=== PATIENT | male | born 1955 | race Caucasian/White ===

== ENCOUNTER 2017-03-15 07:59 | Day surgery (SDC) | payer OTHER ==
[2017-03-13 15:11] VITALS: BMI 28.1
[~2017-03-15 07:59] MED LIST: LACTATED RINGERS 1,000 ML IV SCH
[2017-03-15 08:54] VITALS: TEMP 97.9
[2017-03-15] MEDS ORDERED: PROPOFOL 10 MG/ML 20 ML VIAL IV ONE (09:21)
[2017-03-15] MEDS ORDERED: LIDOCAINE 1% INJ 10MG/ML (20 ML MDV) ONE (09:21)
--- NOTE | 2017-03-15 09:40 | P.PCN ---
Date of Procedure: 03/15/17 Preoperative Diagnosis: Postoperative Diagnosis: Procedure(s) Performed: BRIEF HISTORY: Patient is a 61-year-old pleasant white male, scheduled for an elective colonoscopy as a part of evaluation of Hemoccult-positive stool. PROCEDURE PERFORMED: Colonoscopy with snare polypectomy. PREOPERATIVE DIAGNOSIS: Hemoccult positive stool. IV sedation per Anesthesia. PROCEDURE: After informed consent was obtained, the patient, was brought into the endoscopy unit. IV sedation was administered by Anesthesia under continuous monitoring. Digital rectal examination was normal. Initially the Olympus CF- 160 flexible video colonoscope was then inserted in the rectum, gradually advanced into the cecum without any difficulty. Careful examination was performed as the scope was gradually being withdrawn. Ileocecal valve and the appendiceal orifice were visualized and appeared normal. Prep was excellent. Mucosa of the cecum, ascending colon, transverse colon, descending colon, sigmoid colon, and rectum appeared normal. In the proximal rectum there was a 1.5 cm polyp that was removed by snare polypectomy. There are moderate left- sided diverticulosis seen. Retroflexion was performed in the rectum and no lesions were seen. The patient tolerated the procedure well. IMPRESSION: 1.5 cm proximal rectal polyp status post polypectomy Rest of the colon appeared normal Moderate left-sided diverticulosis RECOMMENDATIONS: Findings of this examination were discussed with the patient as well as his family. He was advised to follow with the biopsy results. The biopsy shows a tubular adenoma he can have a repeat colonoscopy in 5 years. Implants: Indications for Procedure: Operative Findings: Description of Procedure:
[2017-03-15 10:18] VITALS: RESP 18
[2017-03-15 10:31] VITALS: BP 170/89; PULSE 78
== END 2017-03-15 10:53 | disposition home or self-care (01) ==
LOC: ORWHC2ENDO 07:59
PROVIDERS: ATTEND Internal Medicine Gastroenterology
DX: K92.1 Melena (principal); K62.1 Rectal polyp; K57.30 Diverticulosis of large intestine without perforation or abscess without bleeding; I10 Essential (primary) hypertension; K21.9 Gastro-esophageal reflux disease without esophagitis; Z79.899 Other long term (current) drug therapy
CPT/HCPCS: 88305; 45385; J2001; J2704

== ENCOUNTER 2018-06-02 13:53 | Inpatient (IN) | payer BC ==
[2018-06-02] MEDS ORDERED: PANTOPRAZOLE 40 MG/10 ML VIAL IVP STA (14:21)
[2018-06-02] MEDS ORDERED: SODIUM CHLORIDE 0.9% 1,000 ML IV STA (14:21)
[2018-06-02] MEDS ORDERED: SODIUM CHLORIDE 0.9% 500 ML 500 ML IV STA (14:21)
[2018-06-02] MEDS ORDERED: MORPHINE SULFATE 4 MG/ML SYRINGE IV STA (14:21)
[2018-06-02] MEDS ORDERED: ONDANSETRON 4 MG/2 ML VIAL IVP STA (14:21)
--- NOTE | 2018-06-02 14:43 | ED ---
Abdominal Pain HPI - General Chief Complaint: Abdominal Pain Stated Complaint: ABD PAIN Time Seen by Provider: 06/02/18 14:01 Source: patient, RN notes reviewed Mode of arrival: ambulatory Limitations: no limitations - History of Present Illness Initial Comments: This a 62-year-old male presents emergency Department chief complaint of abdominal pain. Patient states it started approximately 10-14 days ago. He states last 3 days and has amplified. Patient states is primarily his epigastric region and when it gets severe it radiates down around. Patient saw PCP today who roddy lab work does not know the results and also had an ultrasound here which showed no acute findings. He called his doctor back stated that she was not feeling better he is actually feeling worse and advised him go to the emergency department. He denies any chest pain or shortness breath. Patient states that he had a colonoscopy approximately one year ago with no major findings. Patient had no prior abdominal surgeries denies any dysuria, hematuria. Patient states that he's had decreased appetite secondary to symptoms states that he has not been eating and drinking much and is also had slight diarrhea. Patient reports no known fever no chills. No flank pain at this time. - Related Data Home Medications Medication Instructions Recorded Confirmed Hydrochlorothiazide [Hydrodiuril] 25 mg PO DAILY 03/13/17 06/02/18 Lansoprazole 15 mg PO BID 03/13/17 06/02/18 Metoprolol Tartrate [Lopressor] 50 mg PO BID 03/13/17 06/02/18 Nabumetone [Relafen] 750 mg PO BID 03/13/17 06/02/18 Allergies Allergy/AdvReac Type Severity Reaction Status Date / Time No Known Allergies Allergy Verified 06/02/18 13:58 Review of Systems ROS Statement: Those systems with pertinent positive or pertinent negative responses have been documented in the HPI. ROS Other: All systems not noted in ROS Statement are negative. Past Medical History Past Medical History: GERD/Reflux, Hypertension History of Any Multi-Drug Resistant Organisms: None Reported Past Surgical History: Orthopedic Surgery Additional Past Surgical History / Comment(s): BILAT KNEE SCOPES Past Anesthesia/Blood Transfusion Reactions: No Reported Reaction Past Psychological History: No Psychological Hx Reported Smoking Status: Former smoker Past Alcohol Use History: None Reported Past Drug Use History: None Reported - Past Family History Mother Family Medical History: No Reported History General Exam Limitations: no limitations General appearance: alert, in no apparent distress Head exam: Present: atraumatic, normocephalic, normal inspection Respiratory exam: Present: normal lung sounds bilaterally. Absent: respiratory distress, wheezes, rales, rhonchi, stridor Cardiovascular Exam: Present: regular rate, normal rhythm, normal heart sounds. Absent: systolic murmur, diastolic murmur, rubs, gallop, clicks GI/Abdominal exam: Present: soft, tenderness (Mild epigastric), normal bowel sounds. Absent: distended, guarding, rebound, rigid Back exam: Absent: CVA tenderness (R), CVA tenderness (L) Neurological exam: Present: alert, oriented X3, CN II-XII intact Skin exam: Present: warm, dry, intact, normal color. Absent: rash Course Vital Signs 06/02/18 06/02/18 06/02/18 13:55 14:47 14:50 Temperature 98.5 F Pulse Rate 75 Respiratory 16 Rate Blood Pressure 148/93 142/87 O2 Sat by Pulse 99 97 98 Oximetry 06/02/18 06/02/18 06/02/18 15:00 15:10 15:20 Temperature Pulse Rate Respiratory Rate Blood Pressure 142/87 155/86 155/86 O2 Sat by Pulse 100 99 Oximetry 06/02/18 06/02/18 15:30 15:40 Temperature Pulse Rate Respiratory Rate Blood Pressure 155/86 O2 Sat by Pulse 100 Oximetry Medical Decision Making - Medical Decision Making 62-year-old male presents emergency from for abdominal pain. Patient had CT labwork CT shows edema and inflammation small bowel mesenteric region. This most likely inflammatory versus infectious less felt to be ischemic. Patient's case discussed with Dr. Delgado. I also did contact ultrasound and take a complete ultrasound of the symptoms he had I&D in which - Lab Data Result diagrams: 06/02/18 14:50 06/02/18 14:50 Lab Results 06/02/18 06/02/18 06/02/18 Range/Units 14:50 14:50 14:50 WBC 11.9 H (3.8-10.6) k/uL RBC 5.09 (4.30-5.90) m/uL Hgb 15.4 (13.0-17.5) gm/dL Hct 43.8 (39.0-53.0) % MCV 86.1 (80.0-100.0) fL MCH 30.2 (25.0-35.0) pg MCHC 35.1 (31.0-37.0) g/dL RDW 12.5 (11.5-15.5) % Plt Count 210 (150-450) k/uL Neutrophils % 83 % Lymphocytes % 9 % Monocytes % 6 % Eosinophils % 0 % Basophils % 0 % Neutrophils # 10.0 H (1.3-7.7) k/uL Lymphocytes # 1.0 (1.0-4.8) k/uL Monocytes # 0.7 (0-1.0) k/uL Eosinophils # 0.1 (0-0.7) k/uL Basophils # 0.0 (0-0.2) k/uL PT (9.0-12.0) sec INR (<1.2) APTT (22.0-30.0) sec Sodium 140 (137-145) mmol/L Potassium 3.6 (3.5-5.1) mmol/L Chloride 103 (98-107) mmol/L Carbon Dioxide 23 (22-30) mmol/L Anion Gap 14 mmol/L BUN 22 H (9-20) mg/dL Creatinine 1.06 (0.66-1.25) mg/dL Est GFR (CKD-EPI)AfAm 88 (>60 ml/min/1.73 sqM) Est GFR (CKD-EPI)NonAf 77 (>60 ml/min/1.73 sqM) Glucose 111 H (74-99) mg/dL Plasma Lactic Acid Zhang 2.1 H* (0.7-2.0) mmol/L Calcium 9.6 (8.4-10.2) mg/dL Total Bilirubin 0.8 (0.2-1.3) mg/dL AST 27 (17-59) U/L ALT 41 (21-72) U/L Alkaline Phosphatase 63 (38-126) U/L Troponin I (0.000-0.034) ng/mL Total Protein 7.9 (6.3-8.2) g/dL Albumin 4.4 (3.5-5.0) g/dL Amylase 45 (30-110) U/L Lipase 136 (23-300) U/L Urine Color Urine Appearance (Clear) Urine pH (5.0-8.0) Ur Specific [place] (1.001-1.035) Urine Protein (Negative) Urine Glucose (UA) (Negative) Urine Ketones (Negative) Urine Blood (Negative) Urine Nitrite (Negative) Urine Bilirubin (Negative) Urine Urobilinogen (<2.0) mg/dL Ur Leukocyte Esterase (Negative) Urine RBC (0-5) /hpf Urine WBC (0-5) /hpf Ur Squamous Epith Cells (0-4) /hpf Urine Bacteria (None) /hpf Urine Mucus (None) /hpf 06/02/18 06/02/18 06/02/18 Range/Units 14:50 14:50 14:50 WBC (3.8-10.6) k/uL RBC (4.30-5.90) m/uL Hgb (13.0-17.5) gm/dL Hct (39.0-53.0) % MCV (80.0-100.0) fL MCH (25.0-35.0) pg MCHC (31.0-37.0) g/dL RDW (11.5-15.5) % Plt Count (150-450) k/uL Neutrophils % % Lymphocytes % % Monocytes % % Eosinophils % % Basophils % % Neutrophils # (1.3-7.7) k/uL Lymphocytes # (1.0-4.8) k/uL Monocytes # (0-1.0) k/uL Eosinophils # (0-0.7) k/uL Basophils # (0-0.2) k/uL PT 11.2 (9.0-12.0) sec INR 1.2 H (<1.2) APTT 23.8 (22.0-30.0) sec Sodium (137-145) mmol/L Potassium (3.5-5.1) mmol/L Chloride (98-107) mmol/L Carbon Dioxide (22-30) mmol/L Anion Gap mmol/L BUN (9-20) mg/dL Creatinine (0.66-1.25) mg/dL Est GFR (CKD-EPI)AfAm (>60 ml/min/1.73 sqM) Est GFR (CKD-EPI)NonAf (>60 ml/min/1.73 sqM) Glucose (74-99) mg/dL Plasma Lactic Acid Zhang (0.7-2.0) mmol/L Calcium (8.4-10.2) mg/dL Total Bilirubin (0.2-1.3) mg/dL AST (17-59) U/L ALT (21-72) U/L Alkaline Phosphatase (38-126) U/L Troponin I <0.012 (0.000-0.034) ng/mL Total Protein (6.3-8.2) g/dL Albumin (3.5-5.0) g/dL Amylase (30-110) U/L Lipase (23-300) U/L Urine Color Yellow Urine Appearance Cloudy (Clear) Urine pH 6.0 (5.0-8.0) Ur Specific [place] 1.028 (1.001-1.035) Urine Protein 1+ H (Negative) Urine Glucose (UA) Negative (Negative) Urine Ketones 3+ H (Negative) Urine Blood Negative (Negative) Urine Nitrite Negative (Negative) Urine Bilirubin Negative (Negative) Urine Urobilinogen 2.0 (<2.0) mg/dL Ur Leukocyte Esterase Negative (Negative) Urine RBC 2 (0-5) /hpf Urine WBC 2 (0-5) /hpf Ur Squamous Epith Cells <1 (0-4) /hpf Urine Bacteria Rare H (None) /hpf Urine Mucus Many H (None) /hpf Disposition Clinical Impression: Abdominal pain, Inflammation of small intestine Narrative: Mesenteric edema Disposition: ADMITTED IP TO THIS HOSP Condition: Fair Referrals: Frederick Charles DO [Primary Care Provider] - 1-2 days
[2018-06-02 15:07] LABS: Appearance,Urine Cloudy (Clear); Bacteria,Urine Rare /hpf; Bilirubin,Urine Negative (Negative); Blood,Urine Negative (Negative); Color,Urine Yellow; Glucose,Urine (UA) Negative (Negative); Ketones,Urine 3+ (Negative); Leukocyte Esterase,Urine Negative (Negative); Mucus,Urine Many /hpf; Nitrite,Urine Negative (Negative); Protein,Urine 1+ (Negative); RBC,Urine 2 /hpf (0-5); Specific Gravity,Urine 1.028 (1.001-1.035); Squamous Epithelial Cell,Urine <1 /hpf (0-4); WBC,Urine 2 /hpf (0-5)
[2018-06-02 15:12] LABS: Basophils % (A) 0 %; Eosinophils # (A) 0.1 k/uL (0-0.7); Eosinophils % (A) 0 %; HCT 43.8 % (39.0-53.0); HGB 15.4 gm/dL (13.0-17.5); Lymphocytes % (A) 9 %; MCH 30.2 pg (25.0-35.0); MCHC 35.1 g/dL (31.0-37.0); MCV 86.1 fL (80.0-100.0); Mean Platelet Volume 6.6; Monocytes # (A) 0.7 k/uL (0-1.0); Monocytes % (A) 6 %; Neutrophils % (A) 83 %; Platelet Count 210 k/uL (150-450); RBC 5.09 m/uL (4.30-5.90); RDW 12.5 % (11.5-15.5); WBC 11.9 k/uL (3.8-10.6)
[2018-06-02 15:13] LABS: INR 1.2 (<1.2); Partial Thromboplastin Time 23.8 sec (22.0-30.0); Prothrombin Time 11.2 sec (9.0-12.0)
[2018-06-02 15:14] LABS: Albumin 4.4 g/dL (3.5-5.0); Calcium 9.6 mg/dL (8.4-10.2); Potassium 3.6 mmol/L (3.5-5.1); Total Bilirubin 0.8 mg/dL (0.2-1.3); Total Protein 7.9 g/dL (6.3-8.2)
--- NOTE | 2018-06-02 15:50 | CT ---
EXAMINATION TYPE: CT abdomen pelvis w con DATE OF EXAM: 06/02/2018 COMPARISON: Ultrasound 06/02/2018 HISTORY: Mid abdominal pain x [address] DLP: 851.9 mGycm Automated exposure control for dose reduction was used. CONTRAST: CT scan of the abdomen pelvis is performed with IV Contrast, patient injected with 100 mL of Isovue 3 00. FINDINGS- LUNG BASES- No significant abnormality is appreciated. LIVER/GB-tiny hypodensity in the liver is too small to characterize. Tiny stone or polyp within the g allbladder. PANCREAS- No gross abnormality is seen. SPLEEN- No gross abnormality is seen. ADRENALS- No gross abnormality is seen. KIDNEYS/BLADDER- no hydronephrosis or nephrolithiasis. There is a subcentimeter hypodensity within th e left kidney too small to characterize. Cortical loss of the left kidney suggest chronic medical estela al disease.. BOWEL-there is a markedly thickened bowel wall in the mid to right abdomen with surrounding mesenteri c edema. Diverticulosis of the colon noted. Appendix normal. There is lack of enhancement of the SMV. LYMPH NODES- No greater than 1cm abdominal or pelvic lymph nodes areappreciated. OSSEOUS STRUCTURES-hypertrophic and degenerative changes. OTHER- lack of enhancement of the IMV and SMV . There is a large hiatal hernia. Trace amount of free fluid in the pelvis. IMPRESSION- 1. There is mesenteric edema with a severely thickened wall small bowel loop in the mid to lower righ t abdomen. Findings are compatible with severe inflammatory process may be on the basis of enteritis. Ischemic, inflammatory or infectious etiology and the differential diagnosis. Poor enhancement of th e superior mesenteric vein is seen. Recommend ultrasound of the SMV and IMV to assess patency and exc lude thrombosis. 2. Diverticulosis with no CT diverticulitis.
[2018-06-02] MEDS ORDERED: PIPERACILLIN-TAZOBACTAM 3.375 GM in SODIUM CHLORIDE 0.9% 100 ML IVPB STA (16:08)
[2018-06-02] MEDS ORDERED: SODIUM CHLORIDE 0.9% 1,000 ML IV ONE (16:08)
[2018-06-02] MEDS ORDERED: HYDROmorphone 1 MG/ML 1 ML SYRINGE IVP PRN (16:16)
[2018-06-02] MEDS ORDERED: NALOXONE 0.4 MG/ML 1 ML VIAL IV PRN (16:16)
[2018-06-02] MEDS ORDERED: ONDANSETRON 4 MG/2 ML VIAL IVP PRN (16:16)
[2018-06-02] MEDS: HYDROmorphone 1 MG/ML 1 ML SYRINGE IVP PRN ×3 (16:28→22:02)
[2018-06-02] MEDS: SODIUM CHLORIDE 0.9% 1,000 ML IV SCH (18:45)
[2018-06-02] MEDS: PIPERACILLIN-TAZOBACTAM 3.375 GM in SODIUM CHLORIDE 0.9% 100 ML IVPB SCH (23:57)
[2018-06-03] MEDS: HYDROmorphone 1 MG/ML 1 ML SYRINGE IVP PRN ×8 (01:12→22:10)
[2018-06-03] MEDS: SODIUM CHLORIDE 0.9% 1,000 ML IV SCH ×3 (02:01→23:30)
[2018-06-03] MEDS: PANTOPRAZOLE 40 MG/10 ML VIAL IV SCH (08:11)
[2018-06-03] MEDS: PIPERACILLIN-TAZOBACTAM 3.375 GM in SODIUM CHLORIDE 0.9% 100 ML IVPB SCH ×3 (10:05→23:27)
[2018-06-03 10:39] VITALS: BMI 29.0
--- NOTE | 2018-06-03 10:39 | P.GSHP ---
History of Present Illness H&P Date: 06/03/18 62-year-old male presented to the emergency room with a chief complaint of midepigastric abdominal pain. Patient stated that he developed the pain about 2 weeks ago. He stated it started midepigastric area radiating across then down. If he ate anything aggravated it caused pain. Patient stated that he notified his primary care provider who did order lab work and an ultrasound which according to the patient showed no acute findings. Called back to his PCP was told to come to the emergency room symptoms were more intense patient stated the pain yesterday before coming into the emergency room was in the mid epigastric area sharp stabbing pain. Patient gives no history of abdominal surgeries. Does have a history of orthopedic procedures done on the bilateral knees. Patient stated that he has not felt like eating several days secondary to having pain if he did eat with abdominal bloating. Also stated over the last several days had been having diarrhea no blood noted in the stool no fever no chills patient states right lower quadrant tender to the touch patient did have a colonoscopy done by Dr. Torre in 2017 reviewing the report showed that a 1.5 cm proximal rectal polyp was removed rest the colon looked normal with moderate left-sided diverticulosis CAT scan of the abdomen pelvis report reviewed diverticulosis with no diverticulitis, findings compatible with severe inflammatory process based on enteritis. 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", djd History of Any Multi-Drug Resistant Organisms: None Reported Past Surgical History: Orthopedic Surgery Additional Past Surgical History / Comment(s): reanna kbee arthroscopies, colonoscopy/plypectomy Past Anesthesia/Blood Transfusion Reactions: Postoperative Nausea & Vomiting ( PONV) Smoking Status: Former smoker - Past Family History Mother Family Medical History: No Reported History, Hearing Disorder / Deafness Additional Family Medical History / Comment(s): MOM IS 88 YEARS JI-HEALTHY ONLY TAKES A VIT E DAILY Father Family Medical History: Rheumatoid Arthritis (RA) Additional Family Medical History / Comment(s): CARDIAC PROBLEMS Medications and Allergies Home Medications Medication Instructions Recorded Confirmed Type Hydrochlorothiazide [Hydrodiuril] 25 mg PO DAILY 03/13/17 06/02/18 History Lansoprazole 15 mg PO BID 03/13/17 06/02/18 History Metoprolol Tartrate [Lopressor] 50 mg PO BID 03/13/17 06/02/18 History Nabumetone [Relafen] 750 mg PO BID 03/13/17 06/02/18 History Allergies Allergy/AdvReac Type Severity Reaction Status Date / Time No Known Allergies Allergy Verified 06/02/18 13:58 Surgical - Exam Vital Signs Temp Pulse Resp BP Pulse Ox 98.5 F 75 16 148/93 99 06/02/18 13:55 06/02/18 13:55 06/02/18 13:55 06/02/18 13:55 06/02/18 13:55 GENERAL APPEARANCE: 62 year old male patient is alert, oriented, in no acute distress. VITAL SIGNS: Reviewed HEENT: Head is normocephalic and atraumatic. Pupils are equal and reactive. The nares are patent. Oropharynx is clear without lesions. NECK: Supple without lymphadenopathy. Traches midline. HEART: S1, S2. Regular rate and rhythm. LUNGS: No crackles or wheezes are heard. ABDOMEN: Soft, mild epigastric tenderness radiating to right upper quadrant nondistended with good bowel sounds. No peritoneal signs. No palpable organomegaly or masses. EXTREMITIES: Normal skin color and turgor. No cyanosis, rash, ulceration, clubbing or edema. Radial pedal pulses are 2/4 bilaterally. NEUROLOGICAL: No focal deficits. Strength and sensation are grossly intact. Results - Labs 06/02/18 14:50 06/02/18 14:50 Abnormal Lab Results - Last 24 Hours (Table) 06/02/18 06/02/18 06/02/18 Range/Units 14:50 14:50 14:50 WBC 11.9 H (3.8-10.6) k/uL Neutrophils # 10.0 H (1.3-7.7) k/uL INR (<1.2) BUN 22 H (9-20) mg/dL Glucose 111 H (74-99) mg/dL Plasma Lactic Acid Zhang 2.1 H* (0.7-2.0) mmol/L Urine Protein (Negative) Urine Ketones (Negative) Urine Bacteria (None) /hpf Urine Mucus (None) /hpf 06/02/18 06/02/18 Range/Units 14:50 14:50 WBC (3.8-10.6) k/uL Neutrophils # (1.3-7.7) k/uL INR 1.2 H (<1.2) BUN (9-20) mg/dL Glucose (74-99) mg/dL Plasma Lactic Acid Zhang (0.7-2.0) mmol/L Urine Protein 1+ H (Negative) Urine Ketones 3+ H (Negative) Urine Bacteria Rare H (None) /hpf Urine Mucus Many H (None) /hpf Diabetes panel 06/02/18 Range/Units 14:50 Sodium 140 (137-145) mmol/L Potassium 3.6 (3.5-5.1) mmol/L Chloride 103 (98-107) mmol/L Carbon Dioxide 23 (22-30) mmol/L BUN 22 H (9-20) mg/dL Creatinine 1.06 (0.66-1.25) mg/dL Glucose 111 H (74-99) mg/dL Calcium 9.6 (8.4-10.2) mg/dL AST 27 (17-59) U/L ALT 41 (21-72) U/L Alkaline Phosphatase 63 (38-126) U/L Total Protein 7.9 (6.3-8.2) g/dL Albumin 4.4 (3.5-5.0) g/dL Calcium panel 06/02/18 Range/Units 14:50 Calcium 9.6 (8.4-10.2) mg/dL Albumin 4.4 (3.5-5.0) g/dL Pituitary panel 06/02/18 Range/Units 14:50 Sodium 140 (137-145) mmol/L Potassium 3.6 (3.5-5.1) mmol/L Chloride 103 (98-107) mmol/L Carbon Dioxide 23 (22-30) mmol/L BUN 22 H (9-20) mg/dL Creatinine 1.06 (0.66-1.25) mg/dL Glucose 111 H (74-99) mg/dL Calcium 9.6 (8.4-10.2) mg/dL Adrenal panel 06/02/18 Range/Units 14:50 Sodium 140 (137-145) mmol/L Potassium 3.6 (3.5-5.1) mmol/L Chloride 103 (98-107) mmol/L Carbon Dioxide 23 (22-30) mmol/L BUN 22 H (9-20) mg/dL Creatinine 1.06 (0.66-1.25) mg/dL Glucose 111 H (74-99) mg/dL Calcium 9.6 (8.4-10.2) mg/dL Total Bilirubin 0.8 (0.2-1.3) mg/dL AST 27 (17-59) U/L ALT 41 (21-72) U/L Alkaline Phosphatase 63 (38-126) U/L Total Protein 7.9 (6.3-8.2) g/dL Albumin 4.4 (3.5-5.0) g/dL Assessment and Plan Assessment: Impression Present on admission epigastric pain radiating to the right upper quadrant likely due to markedly thickened bowel wall with surrounding mesenteric edema inflammation small intestine Computed tomography scan abdomen pelvis show evidence of diverticulosis no diverticulitis Ultrasound of the gallbladder show multiple polyps with common bile duct normal History of colonoscopy 2017 moderate left-sided diverticulosis, 1.5 cm rectal polyp status post polypectomy Present on admission leukocytosis suspect reactive Plan Pain control NPO for now until surgeon evaluates the CAT scan IV Zosyn as ordered DVT and GI prophylaxis Further surgical recommendations pending IV fluid hydration The above impression and plan of care have been discussed and directed by signing physician. Lona John nurse practitioner acting as scribe for signing physician.
--- NOTE | 2018-06-03 19:06 | P.PN ---
Progress Note - Text Progress Note Date: 06/03/18 The patient feels better. His abdominal pain is almost completely resolved. On exam is lesser stable. His evidence soft. Patient will start on clear liquid diet. If his pain persists we will he will undergo repeat CAT scan in the a.m.
[2018-06-04] MEDS: HYDROmorphone 1 MG/ML 1 ML SYRINGE IVP PRN ×2 (03:32→06:53)
[2018-06-04] MEDS: SODIUM CHLORIDE 0.9% 1,000 ML IV SCH ×2 (08:28→17:44)
[2018-06-04] MEDS: PIPERACILLIN-TAZOBACTAM 3.375 GM in SODIUM CHLORIDE 0.9% 100 ML IVPB SCH ×3 (08:28→23:19)
[2018-06-04] MEDS: PANTOPRAZOLE 40 MG/10 ML VIAL IV SCH (08:29)
[2018-06-04 09:10] LABS: Basophils % (A) 0 %; Eosinophils # (A) 0.2 k/uL (0-0.7); Eosinophils % (A) 2 %; HCT 35.2 % (39.0-53.0); HGB 12.5 gm/dL (13.0-17.5); Lymphocytes # (A) 0.8 k/uL (1.0-4.8); Lymphocytes % (A) 8 %; MCH 31.4 pg (25.0-35.0); MCHC 35.5 g/dL (31.0-37.0); MCV 88.5 fL (80.0-100.0); Mean Platelet Volume 6.4; Monocytes # (A) 0.6 k/uL (0-1.0); Monocytes % (A) 6 %; Neutrophils % (A) 82 %; Platelet Count 178 k/uL (150-450); RBC 3.98 m/uL (4.30-5.90); RDW 12.4 % (11.5-15.5); WBC 9.7 k/uL (3.8-10.6)
[2018-06-04 09:36] LABS: ALT 26 U/L (21-72); AST 17 U/L (17-59); Albumin 2.8 g/dL (3.5-5.0); Alkaline Phosphatase 40 U/L (38-126); Anion Gap 7 mmol/L; Blood Urea Nitrogen 14 mg/dL (9-20); Calcium 8.2 mg/dL (8.4-10.2); Carbon Dioxide 26 mmol/L (22-30); Chloride 108 mmol/L (98-107); Glucose 107 mg/dL (74-99); Potassium 4.1 mmol/L (3.5-5.1); Sodium 141 mmol/L (137-145); Total Bilirubin 0.5 mg/dL (0.2-1.3); Total Protein 5.6 g/dL (6.3-8.2)
[2018-06-04] MEDS ORDERED: IOPAMIDOL-300 CONTRAST 30 ML VIAL (ORAL USE) PO PRN (09:50)
--- NOTE | 2018-06-04 10:00 | P.PN ---
Subjective Progress Note Date: 06/04/18 62-year-old male seen at the bedside patient states he started clear liquid diet last evening after drinking the liquid developed bloating sensation with abdominal pain midepigastric area. Stated no nausea sensation no emesis had 1 small stool. Patient reports this morning continues to experience the same sensation of bloating in the abdomen but midepigastric discomfort afebrile abdomen slight tenderness midepigastric area radiating to the right lower quadrant AST and ALT not elevated Labs noted white count 9.7 electrolytes within normal limits Objective - Vital Signs Vital signs: Vital Signs Temp 97.9 F 06/04/18 06:08 Pulse 59 L 06/04/18 06:08 Resp 18 06/04/18 06:08 BP 153/76 06/04/18 06:08 Pulse Ox 98 06/04/18 06:08 Intake & Output 06/03/18 06/04/18 06/04/18 18:59 06:59 18:59 Intake Total 600 900 Output Total 500 Balance 600 400 Weight 86.636 kg Intake: Intake, IV Titration 900 Amount Piperacillin-Tazobactam 3 100 .375 gm In Sodium Chloride 0.9% 100 ml @ 25 mls/hr IVPB Q8HR SHAILESH Rx# :[id number] Sodium Chloride 0.9% 1, 800 000 ml @ 100 mls/hr IV . Q10H [facility]AILESH Rx#:[id number] Oral 600 Output: Urine 500 Other: Voiding Method Toilet # Voids 1 1 - Exam Physical exam 62-year-old male sitting up in a chair appears in no acute distress Lungs adequate air movement bilaterally no shortness of breath Heart S1-S2 audible regular Abdomen mild tenderness right lower quadrant with midepigastric tenderness mildly distended nontender reports no nausea no vomiting no frequent stooling Extremities no edema - Labs CBC & Chem 7: 06/04/18 08:58 06/04/18 08:58 Labs: Abnormal Lab Results - Last 24 Hours (Table) 06/04/18 06/04/18 Range/Units 08:58 08:58 RBC 3.98 L (4.30-5.90) m/uL Hgb 12.5 L (13.0-17.5) gm/dL Hct 35.2 L (39.0-53.0) % Neutrophils # 8.0 H (1.3-7.7) k/uL Lymphocytes # 0.8 L (1.0-4.8) k/uL Chloride 108 H (98-107) mmol/L Glucose 107 H (74-99) mg/dL Calcium 8.2 L (8.4-10.2) mg/dL Total Protein 5.6 L (6.3-8.2) g/dL Albumin 2.8 L (3.5-5.0) g/dL Microbiology - Last 24 Hours (Table) 06/02/18 14:15 Blood Culture - Preliminary Blood No Growth after 24 hours Assessment and Plan Assessment: Impression Present on admission epigastric pain radiating to the right upper quadrant likely due to markedly thickened bowel wall with surrounding mesenteric edema inflammation small intestine Computed tomography scan abdomen pelvis show evidence of diverticulosis no diverticulitis Ultrasound of the gallbladder show multiple polyps with common bile duct normal History of colonoscopy 2017 moderate left-sided diverticulosis, 1.5 cm rectal polyp status post polypectomy Present on admission leukocytosis suspect reactive Plan Pain control We'll repeat a computed tomography scan of the abdomen pelvis with oral contrast follow up on results IV Zosyn as ordered DVT and GI prophylaxis Further surgical recommendations pending IV fluid hydration Pain control Repeat labs in the morning The above impression and plan of care have been discussed and directed by signing physician. Lona John nurse practitioner acting as scribe for signing physician.
[2018-06-04] MEDS: IOPAMIDOL-300 CONTRAST 30 ML VIAL (ORAL USE) PO PRN ×2 (10:04→11:06)
--- NOTE | 2018-06-04 12:29 | CT ---
EXAMINATION TYPE: CT abdomen pelvis w con DATE OF EXAM: 06/04/2018 COMPARISON: CT abdomen pelvis from 2 days earlier HISTORY: Abdominal pain not further specified. CT DLP: 901.3 mGycm, Automated Exposure Control for Dose Reduction was Utilized. CONTRAST: CT scan of the abdomen and pelvis is performed with oral and with IV Contrast, patient injected with 100 mL of Isovue 300. FINDINGS: LUNG BASES: There is new small to tiny right pleural effusion and associated compressive atelectasis. There is new trace left pleural effusion and associated left basilar linear atelectasis. LIVER/GB: There are stable subcentimeter round low dense lesion right hepatic lobe near gallbladder f jeanna axial image 26 2 small to further characterize but presumed benign. Heterogeneity with transient hepatic attenuation difference remains present. PANCREAS: No significant abnormality is seen. SPLEEN: No significant abnormality is seen. ADRENALS: No significant abnormality is seen. KIDNEYS: There is subcentimeter simple appearing cyst posteriorly mid to lower pole level left kidney axial image 36 series 3. BOWEL: There is stable small to moderate-sized hiatal hernia. Oral contrast reaches level of hepatic flexure. There is no suspicious small bowel dilatation. There is persistent severe wall thickening in volving ileal loop in the right lower quadrant which does not include terminal ileum. There is mild w all thickening in the distal one third of transverse colon through splenic flexure into proximal one half of descending colon. This could reflect product of poor distention but a mild colitis cannot be excluded at this level. Severe diverticulosis of sigmoid colon is redemonstrated. Persistent mild/mod erate wall thickening mid to distal sigmoid colon remains present. Differential includes product of p oor distention versus focal colitis. No significant adjacent fat stranding noted. PROSTATE/SEMINAL VESICLES: No gross abnormality seen. LYMPH NODES: No greater than 1cm abdominal or pelvic lymph nodes are appreciated. OSSEOUS STRUCTURES: No significant abnormality is seen. OTHER: Small to moderate amount of free fluid in pelvis axial image 72 is increased from prior. There is nonfilling of the superior mesenteric vein on both early and delayed phase images consistent with complete thrombosis this is best visualized on coronal images 41 through 45 up to the confluence wit h splenic vein. Other adjacent draining veins show contrast opacification. IMPRESSION: Persistent severe focal enteritis involving ileal loop in the right lower quadrant and up per pelvis. Cannot exclude additional mild areas of colitis as detailed above. Complete acute thrombo sis of the SMV is once again felt present as there is persistent nonenhancement noted. No significant improvement or change from 2 days earlier.
--- NOTE | 2018-06-04 17:30 | P.PN ---
Progress Note - Text Progress Note Date: 06/04/18 The patient is resting comfortably in his bed. He denies any significant abdominal pain. He has some minimal abdominal distention. He denies any nausea or vomiting. He's had multiple bowel movements. He's had no vomiting. Patient's CAT scan was reviewed. There appears to be significantly thickened jejunal loop. There is also evidence of SMV thrombosis. The patient has no acute abdominal tenderness. He is tolerating clear liquids. Patient will have his diet advanced to full liquid diet. He will be clinically observed.
[2018-06-04] MEDS: HYDROcodone/APAP 5-325MG 1 EACH TAB PO PRN (18:38)
[2018-06-05] MEDS: HYDROcodone/APAP 5-325MG 1 EACH TAB PO PRN (00:14)
[2018-06-05] MEDS: SODIUM CHLORIDE 0.9% 1,000 ML IV SCH ×2 (04:12→12:11)
[2018-06-05] MEDS: PANTOPRAZOLE 40 MG/10 ML VIAL IV SCH (07:36)
[2018-06-05] MEDS: PIPERACILLIN-TAZOBACTAM 3.375 GM in SODIUM CHLORIDE 0.9% 100 ML IVPB SCH ×3 (07:36→23:34)
[2018-06-05 08:36] LABS: Basophils # (A) 0.1 k/uL (0-0.2); Basophils % (A) 1 %; Eosinophils # (A) 0.3 k/uL (0-0.7); Eosinophils % (A) 3 %; HCT 42.1 % (39.0-53.0); Lymphocytes # (A) 0.9 k/uL (1.0-4.8); Lymphocytes % (A) 9 %; MCH 29.6 pg (25.0-35.0); MCHC 33.2 g/dL (31.0-37.0); MCV 89.2 fL (80.0-100.0); Mean Platelet Volume 6.6; Monocytes # (A) 0.6 k/uL (0-1.0); Monocytes % (A) 6 %; Neutrophils # (A) 7.7 k/uL (1.3-7.7); Neutrophils % (A) 79 %; Platelet Count 234 k/uL (150-450); RBC 4.72 m/uL (4.30-5.90); RDW 12.4 % (11.5-15.5); WBC 9.6 k/uL (3.8-10.6)
[2018-06-05] MEDS ORDERED: METOPROLOL TARTRATE 50 MG TAB PO SCH (09:00)
[2018-06-05] MEDS ORDERED: HYDROCHLOROTHIAZIDE 25 MG TAB PO SCH (09:00)
[2018-06-05 09:15] LABS: ALT 29 U/L (21-72); AST 25 U/L (17-59); Albumin 3.5 g/dL (3.5-5.0); Alkaline Phosphatase 52 U/L (38-126); Anion Gap 8 mmol/L; Blood Urea Nitrogen 13 mg/dL (9-20); Calcium 8.9 mg/dL (8.4-10.2); Carbon Dioxide 26 mmol/L (22-30); Chloride 108 mmol/L (98-107); Glucose 106 mg/dL (74-99); Potassium 3.4 mmol/L (3.5-5.1); Sodium 142 mmol/L (137-145); Total Bilirubin 0.6 mg/dL (0.2-1.3); Total Protein 6.6 g/dL (6.3-8.2)
[2018-06-05] MEDS ORDERED: HEPARIN SODIUM,PORCINE 5,000 UNIT/ML 1 ML VIAL IV PRN (09:38)
[2018-06-05] MEDS: HEPARIN SOD,PORK IN 0.45% NACL 25,000 UNIT in 0.45% NACL 1 500ML.BAG IV SCH (10:09)
--- NOTE | 2018-06-05 10:43 | P.PN ---
Subjective Progress Note Date: 06/05/18 63-year-old male seen at the bedside with Dr. segal and . dr segal did update the daughter per phone conversation as well as the patient and the patient's on the plan of care. Patient reports yesterday evening after drinking some chicken broth developed abdominal pain. Patient points to the midepigastric area states he felt bloated. CAT scan done yesterday was reviewed by Dr. segal . Noted complete acute thrombus of the SMV persistent severe focal enteritis involving the ileal loop in the right lower quadrant and upper pelvis additionally patient's heart rate was noted to be in the 90s last night EKG obtained at that time showed atrial fibrillation rate in the 90s. Patient was asymptomatic. Patient also reports having a history of a clotting disorder questionable factor V on no anticoagulation. Currently sitting up on the edge of the bed and states less abdominal discomfort Objective - Vital Signs Vital signs: Vital Signs Temp 98.7 F 06/05/18 07:30 Pulse 84 06/05/18 08:45 Resp 16 06/05/18 08:45 BP 119/89 06/05/18 07:24 Pulse Ox 94 L 06/04/18 22:15 Intake & Output 06/04/18 06/05/18 06/05/18 18:59 06:59 18:59 Intake Total 600 600 Balance 600 600 Intake: Oral 600 600 Other: Voiding Method Toilet # Voids 2 3 # Bowel Movements 1 - Exam Physical exam 62-year-old male sitting up in a chair appears in no acute distress talkative at bedside Lungs adequate air movement bilaterally no shortness of breath Heart S1-S2 audible regular heart rate in the 80s Abdomen soft slightly distended reports mild tenderness in the epigastric area non-bloated states urinating no difficulty no stool passing gas reports no nausea vomiting Extremities no edema - Labs CBC & Chem 7: 06/05/18 08:17 06/05/18 08:17 Labs: Abnormal Lab Results - Last 24 Hours (Table) 06/05/18 06/05/18 Range/Units 08:17 08:17 Lymphocytes # 0.9 L (1.0-4.8) k/uL Potassium 3.4 L (3.5-5.1) mmol/L Chloride 108 H (98-107) mmol/L Glucose 106 H (74-99) mg/dL Microbiology - Last 24 Hours (Table) 06/02/18 14:15 Blood Culture - Preliminary Blood No Growth after 48 hours Assessment and Plan Assessment: Impression Present on admission epigastric pain radiating to the right upper quadrant likely due to markedly thickened bowel wall with surrounding mesenteric edema inflammation small intestine Computed tomography scan abdomen pelvis show evidence of diverticulosis no diverticulitis Ultrasound of the gallbladder show multiple polyps with common bile duct normal History of colonoscopy 2016 moderate left-sided diverticulosis, 1.5 cm rectal polyp status post polypectomy Present on admission leukocytosis suspect reactive CAT scan of the abdomen and pelvis obtained on the may report reviewed acute thrombus of the SMV with persistent severe vocal and neuritis involving ileal loop in the right lower quadrant History of a clotting disorder 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 2 and 5 on no anticoagulation at home Plan Pain control IV Zosyn as ordered DVT and GI prophylaxis Further surgical recommendations pending IV fluid hydration Pain control Consult hematology for the acute thrombus of the SMV and history of questionable clotting disorder consult cardiology for the episode of atrial fibrillation consult Dr. Parmar medical management Start IV heparin drip as ordered The above impression and plan of care have been discussed and directed by signing physician. Lona John nurse practitioner acting as scribe for signing physician.
[2018-06-05] MEDS: POTASSIUM CHLORIDE ER 20 MEQ TAB.ER PO SCH ×2 (10:55→13:02)
[2018-06-05 11:14] LABS: INR 1.2 (<1.2); Prothrombin Time 11.5 sec (9.0-12.0)
--- NOTE | 2018-06-05 12:08 | ECHOF ---
Referral Reason:arrhythmia MEASUREMENTS -------- HEIGHT: 172.7 cm WEIGHT: 86.6 kg BP: 119/89 RVIDd: 3.3 cm (< 3.3) IVSd: 1.3 cm (0.6 - 1.1) LVIDd: 4.2 cm (3.9 - 5.3) LVPWd: 1.2 cm (0.6 - 1.1) IVSs: 1.8 cm LVIDs: 2.7 cm LVPWs: 1.5 cm LA Diam: 3.6 cm (2.7 - 3.8) LAESV Index (A-L): 37.79 ml/m Ao Diam: 3.4 cm (2.0 - 3.7) AV Cusp: 2.1 cm (1.5 - 2.6) MV EXCURSION: 20.824 mm (> 18.000) MV EF SLOPE: 144 mm/s (70 - 150) EPSS: 0.4 cm MV E Garrison: 1.12 m/s MV DecT: 205 ms MV A Garrison: 0.73 m/s MV E/A Ratio: 1.53 RAP: 5.00 mmHg RVSP: 17.37 mmHg FINDINGS -------- Atrial fibrillation. This was a technically good study. The left ventricular size is normal. There is mild concentric left ventricular hypertrophy. Overa ll left ventricular systolic function is normal with, an EF between 60 - 65 %. The right ventricle is mildly enlarged. LA is moderately dilated 34-39 ml/m2 The right atrium is normal in size. The aortic valve is trileaflet and appears structurally normal. The mitral valve is normal. Mild tricuspid regurgitation present. Right ventricular systolic pressure is normal at < 35 mmHg. There is no pulmonic regurgitation present. The aortic root size is normal. Normal inferior vena cava with normal inspiratory collapse consistent with estimated right atrial pre ssure of 5 mmHg. The inferior vena cava is mildly dilated. There is no pericardial effusion. CONCLUSIONS -------- 1. Atrial fibrillation. 2. This was a technically good study. 3. The left ventricular size is normal. 4. There is mild concentric left ventricular hypertrophy. 5. Overall left ventricular systolic function is normal with, an EF between 60 - 65 %. 6. The right ventricle is mildly enlarged. 7. LA is moderately dilated 34-39 ml/m2 8. The right atrium is normal in size. 9. The aortic valve is trileaflet and appears structurally normal. 10. The mitral valve is normal. 11. Mild tricuspid regurgitation present. 12. Right ventricular systolic pressure is normal at < 35 mmHg. 13. There is no pulmonic regurgitation present. 14. The aortic root size is normal. 15. Normal inferior vena cava with normal inspiratory collapse consistent with estimated right atrial pressure of 5 mmHg. 16. The inferior vena cava is mildly dilated. 17. There is no pericardial effusion. FOOT PRESS OPERATOR: Sia Pinzon RDCS
[2018-06-05 13:00] LABS: Magnesium 2.3 mg/dL (1.6-2.3)
--- NOTE | 2018-06-05 13:48 | P.CRDCN ---
History of Present Illness History of present illness: This is a pleasant 63-year-old male past medical history significant for hypertension, sleep apnea and GERD. He denies history of coronary artery disease or cardiac arrhythmia. He has never followed with a cripple chaser for any reason. We have been asked to see him in consultation for atrial fibrillation. He initially presented to the hospital 06/02 with abdominal pain and was diagnosed with a thrombus of the SMV. No EKG obtained on admission. Last night thee nurse felt his heart sounded irregular during her assessment and an EKG was obtained that showed he was in atrial fibrillation with controlled ventricular response. He denies ever having felt palpitations, chest pain, shortness of breath, dizziness, nausea or vomiting. Laboratory data reviewed, hgb 14, plt 234, sodium 142, potassium 3.4, creatinine 0.86, magnesium 2.3, TSH 1.86. Echocardiogram obtained reveals preserved left ventricular systolic function with ejection fraction 60-65% with mild TR. Current cardiac medications include lopressor 50 mg in AM and 100 mg at HS and hydrochlorothiazide 25 mg daily. At the time of my exam: CONSTITUTIONAL: Denies fever. Denies chills. EYES: Denies blurred vision. Denies vision changes. Denies eye pain. EARS, NOSE, MOUTH & THROAT: Denies headache. Denies sore throat. Denies ear pain. CARDIOVASCULAR: Denies chest pain. Denies shortness of breath. Denies orthopnea. Denies PND. Denies palpitations. RESPIRATORY: Denies cough. GASTROINTESTINAL: Denies abdominal pain. Denies diarrhea. Denies constipation. Denies nausea. Denies vomiting. MUSCULOSKELETAL: Denies myalgias. INTEGUMENTARY: Denies pruitis. Denies rash. NEUROLOGIC: Denies numbness. Denies tingling. Denies weakness. PSYCHIATRIC: Denies anxiety. Denies depression. ENDOCRINE: Denies fatigue. Denies weight change. Denies polydipsia. Denies polyurina. GENITOURINARY: Denies burning, hematuria or urgency with micturation. HEMATOLOGIC: Denies history of anemia. Denies bleeding. Blood pressure 119/89 heart rate 89 afebrile maintaining oxygen saturation or murmur GENERAL: This is a 63-year-old male in no apparent distress at the time of my examination. HEENT: Head is atraumatic, normocephalic. Pupils are equal, round. Sclerae anicteric. Conjunctivae are clear. Mucous membranes of the mouth are moist. Neck is supple. There is no jugular venous distention. No carotid bruit is heard. LUNGS: Clear to auscultation no wheezes, rales or rhonchi. No chest wall tenderness is noted on palpation or with deep breathing. HEART: Irregular rate and rhythm without murmurs, rubs or gallops. S1 and S2 heard. ABDOMEN: Soft, nontender. Bowel sounds are heard. No organomegaly noted. EXTREMITIES: No evidence of peripheral edema and no calf tenderness noted. VASCULAR: Radial and dorsalis pedis pulses palpated, no evidence of clubbing. NEUROLOGIC: Patient is awake, alert and oriented x3. ASSESSMENT New-onset paroxysmal atrial fibrillation with controlled ventricular response Acute thrombus of the SMV Hypokalemia, currently being replaced. 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 Apply bus driver/monitor. Check TSH and magnesium level. He is currently anticoagulated with heparin infusion per surgical services secondary to SMV thrombus. We have recommended he be initiated on long-term anticoagulation. This has been discussed in great detail with the patient and his and they are agreeable. The risks have been explained in great detail. We will check the cost of Eliquis 5 mg twice a day with case management. Further recommendations to follow based upon clinical course. Thank you kindly for this consultation. Nurse Practitioner note has been reviewed, I agree with a documented findings and plan of care. Patient was seen and examined. Past Medical History Past Medical History: Blood Disorder, GERD/Reflux, Hypertension, Sleep Apnea/ CPAP/BIPAP Additional Past Medical History / Comment(s): "i have factor 2 and factor 5", djd History of Any Multi-Drug Resistant Organisms: None Reported Past Surgical History: Orthopedic Surgery Additional Past Surgical History / Comment(s): reanna kbee arthroscopies, colonoscopy/plypectomy Past Anesthesia/Blood Transfusion Reactions: Postoperative Nausea & Vomiting ( PONV) Smoking Status: Former smoker - Past Family History Mother Family Medical History: No Reported History, Hearing Disorder / Deafness Additional Family Medical History / Comment(s): MOM IS 88 YEARS JI-HEALTHY ONLY TAKES A VIT E DAILY Father Family Medical History: Rheumatoid Arthritis (RA) Additional Family Medical History / Comment(s): CARDIAC PROBLEMS Medications and Allergies Home Medications Medication Instructions Recorded Confirmed Type Hydrochlorothiazide [Hydrodiuril] 25 mg PO DAILY 03/13/17 06/02/18 History Lansoprazole 15 mg PO BID 03/13/17 06/02/18 History Metoprolol Tartrate [Lopressor] 50 mg PO BID 03/13/17 06/02/18 History Nabumetone [Relafen] 750 mg PO BID 03/13/17 06/02/18 History Allergies Allergy/AdvReac Type Severity Reaction Status Date / Time No Known Allergies Allergy Verified 06/02/18 13:58 Physical Exam Vitals: Vital Signs Temp Pulse Pulse Resp BP Pulse Ox 06/05/18 08:45 84 16 06/05/18 07:30 98.7 F 06/05/18 07:24 89 16 119/89 06/04/18 22:15 98.9 F 87 20 134/70 94 L 06/04/18 15:35 97.1 F L 65 16 134/71 96 Intake and Output 06/04/18 06/05/18 06/05/18 22:59 06:59 14:59 Intake Total 600 Output Total 600 Balance 600 -600 Intake: Oral 600 Output: Urine 600 Other: Voiding Method Toilet # Voids 3 3 # Bowel Movements 1 Results 06/05/18 08:17 06/05/18 08:17 Cardiac Enzymes 06/05/18 Range/Units 08:17 AST 25 (17-59) U/L Coagulation 06/05/18 06/05/18 Range/Units 09:19 09:38 PT 11.5 (9.0-12.0) sec APTT 24.7 (22.0-30.0) sec CBC 06/05/18 Range/Units 08:17 WBC 9.6 (3.8-10.6) k/uL RBC 4.72 (4.30-5.90) m/uL Hgb 14.0 (13.0-17.5) gm/dL Hct 42.1 (39.0-53.0) % Plt Count 234 (150-450) k/uL Comprehensive Metabolic Panel 06/05/18 Range/Units 08:17 Sodium 142 (137-145) mmol/L Potassium 3.4 L (3.5-5.1) mmol/L Chloride 108 H (98-107) mmol/L Carbon Dioxide 26 (22-30) mmol/L BUN 13 (9-20) mg/dL Creatinine 0.86 (0.66-1.25) mg/dL Glucose 106 H (74-99) mg/dL Calcium 8.9 (8.4-10.2) mg/dL AST 25 (17-59) U/L ALT 29 (21-72) U/L Alkaline Phosphatase 52 (38-126) U/L Total Protein 6.6 (6.3-8.2) g/dL Albumin 3.5 (3.5-5.0) g/dL Current Medications Generic Name Dose Route Start Last Admin Trade Name Freq PRN Reason Stop Dose Admin Hydrocodone Bitart/Acetaminophen 1 each 06/04/18 09:52 06/05/18 00:14 Bolton 5-325 PO 1 each Q4HR PRN Administration Pain Heparin Sodium (Porcine) 0 unit 06/05/18 09:38 Heparin IV PER PROTOCOL PRN Low PTT Protocol Sodium Chloride 1,000 mls @ 100 mls/hr 06/02/18 16:15 06/05/18 12:11 Saline 0.9% IV Not Given .Q10H SHAILESH Piperacillin Sod/Tazobactam 100 mls @ 25 mls/hr 06/03/18 00:00 06/05/18 07:36 Sod 3.375 gm/ Sodium Chloride IVPB 25 mls/hr Q8HR SHAILESH Administration Heparin Sodium/Sodium Chloride 500 mls @ 20.09 mls/hr 06/05/18 09:45 10:09 25,000 unit/ Sodium Chloride IV 11.6 units/kg/hr .Q24H SHAILESH 20.09 mls/hr Administration Protocol 11.6 UNITS/KG/HR Metoprolol Tartrate 100 mg 06/05/18 21:00 Lopressor PO HS [facility] Metoprolol Tartrate 50 mg 06/06/18 09:00 Lopressor PO DAILY SHAILESH Naloxone HCl 0.2 mg 06/02/18 16:16 Narcan IV Q2M PRN Opioid Reversal Ondansetron HCl 4 mg 06/02/18 16:16 Zofran IVP Q8HR PRN Nausea And Vomiting Pantoprazole Sodium 40 mg 06/03/18 09:00 06/05/18 07:36 Protonix IV 40 mg DAILY SHAILESH Administration Intake and Output 06/04/18 06/05/18 06/05/18 22:59 06:59 14:59 Intake Total 600 Output Total 600 Balance 600 -600 Intake: Oral 600 Output: Urine 600 Other: Voiding Method Toilet # Voids 3 3 # Bowel Movements 1 06/05/18 08:17 06/05/18 08:17
--- NOTE | 2018-06-05 19:14 | P.CONS ---
History of Present Illness - History of Present Illness this is a pleasant 63 yo M with pmh of hypertension, osteoarthritis, GERD, and sleep apnea, obesty who presents with abdominal pain of 2 weeks duration , the pain is in the epigastrium, stabing in character, was getting worse with food with no associated nausea or vomiting. pt has little loose bowel movement. he presented to his pcp during which he got worse with some dizziness and he was sent to the hospital . CT of Abd/Pelvis: there is markedly thickened bowel wall in the right abd with mesenteric edema and thormbosis of SMV is suspected . EKG : showed atrial fibrillation. pt is already was started on heparin drip. cardiolgy team evaluated the pt and recomended pt to start on eliquis. pt currently abd pain is minial with some abd distension . pt ate a little bit because he feels full. 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 Review of Systems REVIEW OF SYSTEMS: CONSTITUTIONAL: No fever, no malaise, no fatigue. HEENT: No recent visual problems or hearing problems. Denied any sore throat. CARDIOVASCULAR: No orthopnea, PND, no palpitations, no syncope. PULMONARY: No shortness of breath, no cough, no hemoptysis. GASTROINTESTINAL: No diarrhea, no nausea, no vomiting, no abdominal pain. Normoactive bowel sounds. NEUROLOGICAL: No headaches, no weakness, no numbness. HEMATOLOGICAL: Denies any bleeding or petechiae. GENITOURINARY: Denies any burning micturition, frequency, or urgency. MUSCULOSKELETAL/RHEUMATOLOGICAL: Denies any joint pain, swelling, or any muscle pain. ENDOCRINE: Denies any polyuria or polydipsia. Past Medical History Past Medical History: Blood Disorder, GERD/Reflux, Hypertension, Sleep Apnea/ CPAP/BIPAP Additional Past Medical History / Comment(s): "i have factor 2 and factor 5", djd History of Any Multi-Drug Resistant Organisms: None Reported Past Surgical History: Orthopedic Surgery Additional Past Surgical History / Comment(s): reanna kbee arthroscopies, colonoscopy/plypectomy Past Anesthesia/Blood Transfusion Reactions: Postoperative Nausea & Vomiting ( PONV) Past Psychological History: No Psychological Hx Reported Smoking Status: Former smoker Additional Past Alcohol Use History / Comment(s): "quit in 1990" - Past Family History Mother Family Medical History: No Reported History, Hearing Disorder / Deafness Additional Family Medical History / Comment(s): MOM IS 88 YEARS JI-HEALTHY ONLY TAKES A VIT E DAILY Father Family Medical History: Rheumatoid Arthritis (RA) Additional Family Medical History / Comment(s): CARDIAC PROBLEMS Brother(s) Family Medical History: Blood Disorder (clotting disorders, PAD) Medications and Allergies Home Medications Medication Instructions Recorded Confirmed Type Hydrochlorothiazide [Hydrodiuril] 25 mg PO DAILY 03/13/17 06/02/18 History Lansoprazole 15 mg PO BID 03/13/17 06/02/18 History Metoprolol Tartrate [Lopressor] 50 mg PO BID 03/13/17 06/02/18 History Nabumetone [Relafen] 750 mg PO BID 03/13/17 06/02/18 History Allergies Allergy/AdvReac Type Severity Reaction Status Date / Time No Known Allergies Allergy Verified 06/02/18 13:58 Physical Exam Vitals: Vital Signs Temp Pulse Pulse Resp BP Pulse Ox 06/05/18 15:22 83 06/05/18 13:32 98.3 F 83 18 123/74 96 06/05/18 08:45 84 16 06/05/18 07:30 98.7 F 06/05/18 07:24 89 16 119/89 06/04/18 22:15 98.9 F 87 20 134/70 94 L Intake and Output 06/05/18 06/05/18 06/05/18 06:59 14:59 22:59 Intake Total 141.635 Output Total 600 Balance -600 141.635 Intake: Intake, IV Titration 141.635 Amount Heparin Sod,Pork in 0.45% 141.635 NaCl 25,000 unit In 0.45 % NaCl 1 500ml.bag @ 11.6 UNITS/KG/HR 20.09 mls/hr IV .Q24H SHAILESH Rx#: [id number] Output: Urine 600 Other: # Voids 3 Physical exam GENERAL: The patient is alert and oriented x3, not in any acute distress. Well developed, well nourished. HEENT: Pupils are round and equally reacting to light. EOMI. No scleral icterus. No conjunctival pallor. Normocephalic, atraumatic. No pharyngeal erythema. No thyromegaly. CARDIOVASCULAR: S1 and S2 present. No murmurs, rubs, or gallops. PULMONARY: Chest is clear to auscultation, no wheezing or crackles. ABDOMEN: Soft, nontender, nondistended, normoactive bowel sounds. No palpable organomegaly. MUSCULOSKELETAL: No joint swelling or deformity. EXTREMITIES: No cyanosis, clubbing, or pedal edema. NEUROLOGICAL: Gross neurological examination did not reveal any focal deficits. SKIN: No rashes. Results CBC & Chem 7: 06/05/18 08:17 06/05/18 08:17 Labs: Abnormal Lab Results - Last 24 Hours (Table) 06/05/18 06/05/18 06/05/18 Range/Units 08:17 08:17 09:38 Lymphocytes # 0.9 L (1.0-4.8) k/uL INR 1.2 H (<1.2) Potassium 3.4 L (3.5-5.1) mmol/L Chloride 108 H (98-107) mmol/L Glucose 106 H (74-99) mg/dL Microbiology - Last 24 Hours (Table) 06/02/18 14:15 Blood Culture - Preliminary Blood No Growth after 72 hours Assessment and Plan Assessment: acute SMV thrombosis , started on anticoagulation enteritis/colitis secondary to above new onset a. fib factor II and V deficincy Plan: this is a pleasant 63 yo M presenting with a fib and SMV thrombosis. cardiology team is been consulted. pt is already started on anti-coagulation. his heart rate is better controlled now. advance diet as tolerated . continue with the same treatment , continue with symptomatic treatment , resume home medication , monitor lytes and vitals including glucose , c/w iv fluids, cardiology consult is appreciated. infectious disease consult is appreciated . c /w same antibioitc . GI and DVT prophylaxis , further recommendation based upon pt clinical course and progress DVT prophylaxis on anticoagulation GI prophylaxis Protonix Prognosis is guarded
--- NOTE | 2018-06-05 19:46 | P.CONS ---
History of Present Illness - Reason for Consult Consult date: 06/05/18 mesenteric venous thrombosis Requesting physician: Lona John - Chief Complaint abd pain - History of Present Illness Mr. Bright is a very pleasant male pt who met with Dr. Moise back in May 2017 where he was referred to have hypercoaguability work up because of family history. He did not have a personal history of venous or arterial thrombosis at that time. He has 6 brothers and one sister, one brother had thrombosis at age 54, was found to be homozygous for prothrombin gene mutation. Another brother was screened and found to be homozygous for prothrombin gene mutation, negative for factor V Leiden and another brother was screened and found to be heterzygous for factor V Leiden mutation. Another brother had MT at age 40, however, he and the other sibling did not have hypercoaguability work up. There have been no other family members with known thrombosis, his father had mini strokes in his 80's. 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 He has bilateral claudication of the lower extremities, history of bilateral knee surgeries, no personal history of thrombosis. He had colonoscopy 8103/[address] Wall with snare polypectomy of a rectal polyp, tubular adenoma. He has had his PSA monitored. Pt states increase stomach upset for about 2 weeks, attributed to a change in his heartburn medication, the pain persisted in the upper abdomen and it became so severe he came for medical attention. The pain was associated with diaphoresis, worsened with eating, denied vomiting, CT AP showed comlete SMV thrombosis and sever sigmoid diverticulosis. Heparin drip has been initiated with significant improvement in his abd pain. 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", djd History of Any Multi-Drug Resistant Organisms: None Reported Past Surgical History: Orthopedic Surgery Additional Past Surgical History / Comment(s): reanna kbee arthroscopies, colonoscopy/plypectomy Past Anesthesia/Blood Transfusion Reactions: Postoperative Nausea & Vomiting ( PONV) Past Psychological History: No Psychological Hx Reported Smoking Status: Former smoker Additional Past Alcohol Use History / Comment(s): "quit in 1990" - Past Family History Mother Family Medical History: No Reported History, Hearing Disorder / Deafness Additional Family Medical History / Comment(s): MOM IS 88 YEARS JI-HEALTHY ONLY TAKES A VIT E DAILY Father Family Medical History: Rheumatoid Arthritis (RA) Additional Family Medical History / Comment(s): CARDIAC PROBLEMS Brother(s) Family Medical History: Blood Disorder (clotting disorders, PAD) Medications and Allergies Home Medications Medication Instructions Recorded Confirmed Type Hydrochlorothiazide [Hydrodiuril] 25 mg PO DAILY 03/13/17 06/02/18 History Lansoprazole 15 mg PO BID 03/13/17 06/02/18 History Metoprolol Tartrate [Lopressor] 50 mg PO BID 03/13/17 06/02/18 History Nabumetone [Relafen] 750 mg PO BID 03/13/17 06/02/18 History Allergies Allergy/AdvReac Type Severity Reaction Status Date / Time No Known Allergies Allergy Verified 06/02/18 13:58 Physical Exam Vitals: Vital Signs Temp Pulse Pulse Resp BP Pulse Ox 06/05/18 15:22 83 06/05/18 13:32 98.3 F 83 18 123/74 96 06/05/18 08:45 84 16 06/05/18 07:30 98.7 F 06/05/18 07:24 89 16 119/89 06/04/18 22:15 98.9 F 87 20 134/70 94 L Intake and Output 06/05/18 06/05/18 06/05/18 06:59 14:59 22:59 Intake Total 141.635 Output Total 600 Balance -600 141.635 Intake: Intake, IV Titration 141.635 Amount Heparin Sod,Pork in 0.45% 141.635 NaCl 25,000 unit In 0.45 % NaCl 1 500ml.bag @ 11.6 UNITS/KG/HR 20.09 mls/hr IV .Q24H [facility] Rx#: [id number] Output: Urine 600 Other: # Voids 3 - Constitutional General appearance: average body habitus, cooperative, no acute distress - EENT Eyes: anicteric sclerae, EOMI, normal appearance ENT: hearing grossly normal, normal oropharynx - Neck Neck: no lymphadenopathy - Respiratory Respiratory: bilateral: CTA - Cardiovascular Rhythm: irregularly irregular Heart sounds: normal: S1, S2 Abnormal Heart Sounds: no systolic murmur, no diastolic murmur, no rub, no S3 Gallop, no S4 Gallop, no click, no other leg Peripheral Edema: bilateral: None - Gastrointestinal General gastrointestinal: normal bowel sounds, soft, tenderness (very mild epigastric) - Genitourinary no inguinal adenopathy - Integumentary Integumentary: normal - Neurologic Neurologic: CNII-XII intact - Musculoskeletal Musculoskeletal: strength equal bilaterally - Psychiatric Psychiatric: A&O x's 3, appropriate affect, intact judgment & insight Results CBC & Chem 7: 06/05/18 08:17 06/05/18 08:17 Labs: Abnormal Lab Results - Last 24 Hours (Table) 06/05/18 06/05/18 06/05/18 Range/Units 08:17 08:17 09:38 Lymphocytes # 0.9 L (1.0-4.8) k/uL INR 1.2 H (<1.2) Potassium 3.4 L (3.5-5.1) mmol/L Chloride 108 H (98-107) mmol/L Glucose 106 H (74-99) mg/dL Microbiology - Last 24 Hours (Table) 06/02/18 14:15 Blood Culture - Preliminary Blood No Growth after [address] scan - abdomen: report reviewed CT scan - pelvis: report reviewed Assessment and Plan (1) Superior mesenteric vein thrombosis Narrative/Plan: Case reviewed in detail with Dr. David. Recommendation is for BLE doppler to rule out DVT. He would also like doppler of SMV and IMV. CTA chest in 24 hours since pt recently had contrast. Dr. David is going to discuss case with Dr. Delgado. Pt will stay on heparin drip for now in case of any possible procedures. It looks as though serial CT scans are being done to monitor the bowel. Pt will be on lifelong anticoagulation as this is an unprovoked clot with factor II and V mutations Will continue to follow with oral anticoagulation recommendations Current Visit: Yes Status: Acute Priority: High Code(s): I81 - PORTAL VEIN THROMBOSIS SNOMED Code(s): 494458766
[2018-06-05] MEDS: METOPROLOL TARTRATE 50 MG TAB PO SCH (21:07)
[2018-06-06] MEDS: SODIUM CHLORIDE 0.9% 1,000 ML IV SCH ×3 (02:25→23:28)
[2018-06-06 06:02] LABS: Basophils % (A) 0 %; Eosinophils # (A) 0.4 k/uL (0-0.7); Eosinophils % (A) 6 %; HCT 37.4 % (39.0-53.0); HGB 12.4 gm/dL (13.0-17.5); Lymphocytes % (A) 14 %; MCH 29.6 pg (25.0-35.0); MCV 89.6 fL (80.0-100.0); Mean Platelet Volume 6.3; Monocytes # (A) 0.4 k/uL (0-1.0); Monocytes % (A) 6 %; Neutrophils # (A) 4.7 k/uL (1.3-7.7); Neutrophils % (A) 70 %; Platelet Count 240 k/uL (150-450); RBC 4.18 m/uL (4.30-5.90); RDW 12.4 % (11.5-15.5); WBC 6.7 k/uL (3.8-10.6)
[2018-06-06 06:10] LABS: ALT 33 U/L (21-72); AST 21 U/L (17-59); Albumin 3.1 g/dL (3.5-5.0); Alkaline Phosphatase 44 U/L (38-126); Anion Gap 6 mmol/L; Blood Urea Nitrogen 16 mg/dL (9-20); Calcium 8.4 mg/dL (8.4-10.2); Carbon Dioxide 25 mmol/L (22-30); Chloride 108 mmol/L (98-107); Glucose 93 mg/dL (74-99); Potassium 4.1 mmol/L (3.5-5.1); Sodium 139 mmol/L (137-145); Total Bilirubin 0.6 mg/dL (0.2-1.3); Total Protein 5.9 g/dL (6.3-8.2)
[2018-06-06] MEDS ORDERED: HEPARIN SODIUM,PORCINE 5,000 UNIT/ML 1 ML VIAL IV STA (06:34)
[2018-06-06] MEDS: HEPARIN SOD,PORK IN 0.45% NACL 25,000 UNIT in 0.45% NACL 1 500ML.BAG IV SCH ×2 (06:50→06:53)
[2018-06-06] MEDS: PANTOPRAZOLE 40 MG TABLET PO SCH (07:27)
[2018-06-06] MEDS: METOPROLOL TARTRATE 50 MG TAB PO SCH ×2 (07:28→21:20)
[2018-06-06] MEDS: PIPERACILLIN-TAZOBACTAM 3.375 GM in SODIUM CHLORIDE 0.9% 100 ML IVPB SCH ×2 (07:55→17:07)
--- NOTE | 2018-06-06 08:53 | P.PN ---
Subjective this is a pleasant 63 yo M with pmh of hypertension, osteoarthritis, GERD, and sleep apnea, obesty who presents with abdominal pain of 2 weeks duration , the pain is in the epigastrium, stabing in character, was getting worse with food with no associated nausea or vomiting. pt has little loose bowel movement. he presented to his pcp during which he got worse with some dizziness and he was sent to the hospital . CT of Abd/Pelvis: there is markedly thickened bowel wall in the right abd with mesenteric edema and thormbosis of SMV is suspected . EKG : showed atrial fibrillation. pt is already was started on heparin drip. cardiolgy team evaluated the pt and recomended pt to start on eliquis. pt currently abd pain is minial with some abd distension . pt ate a little bit because he feels full. 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 06/06/2018 Patient still have mild abdominal pain which is like sharp associated with bowel movement. Patient since yesterday have 5 bowel movements which were mushy. However by the time I saw the patient and his abdominal pain has resolved down to 0/10. No associated nausea vomiting. No chest pain or dyspnea. No with pain or swelling. Cardiology and oncology team are following the patient as well and they recommended to start him on oral anticoagulation. Patient need approval for his Eliquis. He still on IV fluids at 50 mL per hour. Gynecology team recommended vascular workup and form of CT angiogram of the chest and double ultrasound of the lower extremity and abdominal ultrasound. Patient will need lifelong anticoagulation and his been informed with this for which he agrees. Risk of nephrotoxicity with IV contrast are explained to the patient in detail she verbalized understanding and acceptance to do the test. Benefits more than risks Objective - Vital Signs Vital signs: Vital Signs Temp 98.5 F 06/06/18 07:00 Pulse 61 06/06/18 07:00 Resp 18 06/06/18 07:00 BP 147/84 06/06/18 07:00 Pulse Ox 97 06/06/18 07:00 Intake & Output 06/05/18 06/06/18 06/06/18 18:59 06:59 18:59 Intake Total 074.815 1573.415 Output Total 600 Balance -274.271 8987.415 Intake: Intake, IV Titration 353.824 3710.415 Amount Heparin Sod,Pork in 0.45% 141.635 361.415 NaCl 25,000 unit In 0.45 % NaCl 1 500ml.bag @ 11.6 UNITS/KG/HR 20.09 mls/hr IV .Q24H [facility] Rx#: [id number] Sodium Chloride 0.9% 1, 900 000 ml @ 100 mls/hr IV . Q10H [facility] Rx#:[id number] Oral 300 Output: Urine 600 Other: Voiding Method Toilet # Voids 2 - Exam Physical exam GENERAL: The patient is alert and oriented x3, not in any acute distress. Well developed, well nourished. HEENT: Pupils are round and equally reacting to light. EOMI. No scleral icterus. No conjunctival pallor. Normocephalic, atraumatic. No pharyngeal erythema. No thyromegaly. CARDIOVASCULAR: S1 and S2 present. No murmurs, rubs, or gallops. PULMONARY: Chest is clear to auscultation, no wheezing or crackles. ABDOMEN: Soft, nontender, nondistended, normoactive bowel sounds. No palpable organomegaly. MUSCULOSKELETAL: No joint swelling or deformity. EXTREMITIES: No cyanosis, clubbing, or pedal edema. NEUROLOGICAL: Gross neurological examination did not reveal any focal deficits. SKIN: No rashes. - Labs CBC & Chem 7: 06/06/18 05:18 06/06/18 05:18 Labs: Abnormal Lab Results - Last 24 Hours (Table) 06/05/18 06/05/18 06/05/18 Range/Units 08:17 09:38 22:47 RBC (4.30-5.90) m/uL Hgb (13.0-17.5) gm/dL Hct (39.0-53.0) % INR 1.2 H (<1.2) APTT 34.0 H (22.0-30.0) sec Potassium 3.4 L (3.5-5.1) mmol/L Chloride 108 H (98-107) mmol/L Glucose 106 H (74-99) mg/dL Total Protein (6.3-8.2) g/dL Albumin (3.5-5.0) g/dL 11/09/18 11/09/18 11/09/18 Range/Units 05:18 05:18 05:18 RBC 4.18 L (4.30-5.90) m/uL Hgb 12.4 L (13.0-17.5) gm/dL Hct 37.4 L (39.0-53.0) % INR (<1.2) APTT 39.3 H (22.0-30.0) sec Potassium (3.5-5.1) mmol/L Chloride 108 H (98-107) mmol/L Glucose (74-99) mg/dL Total Protein 5.9 L (6.3-8.2) g/dL Albumin 3.1 L (3.5-5.0) g/dL Microbiology - Last 24 Hours (Table) 06/02/18 14:15 Blood Culture - Preliminary Blood No Growth after 72 hours Assessment and Plan Assessment: acute SMV thrombosis , started on anticoagulation enteritis/colitis secondary to above new onset a. fib factor II and V deficincy Mild leukocytosis on admission, resolved Plan: this is a pleasant 63 yo M presenting with a fib and SMV thrombosis. cardiology team is been consulted. pt is already started on anti-coagulation. his heart rate is better controlled now. advance diet as tolerated . continue with the same treatment , continue with symptomatic treatment , resume home medication , monitor lytes and vitals including glucose , c/w iv fluids, cardiology consult is appreciated. infectious disease consult is appreciated . c /w same antibioitc . GI and DVT prophylaxis , further recommendation based upon pt clinical course and progress DVT prophylaxis on anticoagulation GI prophylaxis Protonix Prognosis is guarded
--- NOTE | 2018-06-06 09:42 | US ---
EXAMINATION TYPE: US venous doppler duplex LE DATE OF EXAM: 06/06/2018 8:44 AM COMPARISON: NONE CLINICAL HISTORY: SMV thrombosis, hypercoaguable state. on heparin for abd vessel thrombus SIDE PERFORMED: bilateral TECHNIQUE: The lower extremity deep venous system is examined utilizing real time linear array sonog shira with graded compression, doppler sonography and color-flow sonography. VESSELS IMAGED: External Iliac Vein (EIV) Common Femoral Vein Deep Femoral Vein Greater Saphenous Vein * Femoral Vein Popliteal Vein Small Saphenous Vein * Proximal Calf Veins (* superficial vessels) Right Leg: Appears negative for DVT Left Leg: Appears negative for DVT IMPRESSION: 1. No diagnostic evidence of DVT
--- NOTE | 2018-06-06 09:46 | US ---
EXAMINATION TYPE: US abdomen complete DATE OF EXAM: 06/06/2018 COMPARISON: NONE CLINICAL HISTORY: SMV thrombosis. known thrombus within abd, reassess abd, no symptoms EXAM MEASUREMENTS: Liver Length: 14.9 cm Gallbladder Wall: 0.2 cm CBD: 0.6 cm Spleen: 10.7 cm Right Kidney: 12.2 x 6.1 x 5.4 cm Left Kidney: 12.4 x 5.0 x 4.9 cm overlying bowel gas severely limits exam Pancreas: unable to see due to bowel gas Liver: unable to visualize left lobe, small right lobe cyst seen Gallbladder: multiple polyps seen = 0.7cm Evidence for sonographic Dozier's sign: no CBD: wnl Spleen: wnl Right Kidney: wnl Left Kidney: 1.3cm superior pole cyst seen Upper IVC: very limited views due to gas Abd Aorta: proximal portion obscured by bowel gas IMPRESSION: 1. Small right lobe hepatic cyst. 2. Gallbladder polyps or nonshadowing stones. 3. Left renal lesion too small to characterize by ultrasound. 4. SMV and IMV are not demonstrated to assess for patency.
--- NOTE | 2018-06-06 11:11 | P.PN ---
<Araceli Johnne M - Last Filed: 06/06/18 11:04> Subjective Progress Note Date: 06/06/18 63-year-old male seen. Patient has been up ambulating in hallway. Patient states had another episode last evening after eating a small amount became bloated felt he had a lot of gas had a bowel movement with relief. Currently this morning the patient states he is not having any bowel movements. Patient is being followed by cardiology oncology service. Currently patient is on IV heparin per recommendations by cardiology for atrial fibrillation with episodes of RVR. Patient is scheduled today for a CT angiogram with Dopplers to the lower extremities per recommendations of oncology. Hemoglobin 12.4 Patient is a history of factor II and factor V deficiency with no history of thrombosis has 3 brothers with the clotting factor deficiency area patient was on no anticoagulation in the outpatient setting Patients being worked up first. Mesenteric vein thrombosis Objective - Vital Signs Vital signs: Vital Signs Temp 98.5 F 06/06/18 07:00 Pulse 61 06/06/18 07:00 Resp 18 06/06/18 07:00 BP 147/84 06/06/18 07:00 Pulse Ox 97 06/06/18 07:00 Intake & Output 06/05/18 06/06/18 06/06/18 18:59 06:59 18:59 Intake Total 245.952 1469.415 Output Total 600 Balance -783.180 2131.415 Weight 86.636 kg Intake: Intake, IV Titration 924.600 4307.415 Amount Heparin Sod,Pork in 0.45% 141.635 361.415 NaCl 25,000 unit In 0.45 % NaCl 1 500ml.bag @ 11.6 UNITS/KG/HR 20.09 mls/hr IV .Q24H [facility] Rx#: [id number] Sodium Chloride 0.9% 1, 900 000 ml @ 100 mls/hr IV . Q10H [facility] Rx#:[id number] Oral 300 Output: Urine 600 Other: Voiding Method Toilet Toilet # Voids 2 - Exam Physical exam 62-year-old male up ambulating in the welsh appears in no acute distress talkative at bedside Lungs adequate air movement bilaterally no shortness of breath Heart S1-S2 audible regular heart rate in the 80s Abdomen soft currently is stating having no abdominal pain this morning no nausea no vomiting states urinating no difficulty no stool passing gas reports no nausea vomiting Extremities no edema - Labs CBC & Chem 7: 06/06/18 05:18 06/06/18 05:18 Labs: Abnormal Lab Results - Last 24 Hours (Table) 06/05/18 06/05/18 06/06/18 Range/Units 09:38 22:47 05:18 RBC 4.18 L (4.30-5.90) m/uL Hgb 12.4 L (13.0-17.5) gm/dL Hct 37.4 L (39.0-53.0) % INR 1.2 H (<1.2) APTT 34.0 H (22.0-30.0) sec Chloride (98-107) mmol/L Total Protein (6.3-8.2) g/dL Albumin (3.5-5.0) g/dL 06/06/18 06/06/18 Range/Units 05:18 05:18 RBC (4.30-5.90) m/uL Hgb (13.0-17.5) gm/dL Hct (39.0-53.0) % INR (<1.2) APTT 39.3 H (22.0-30.0) sec Chloride 108 H (98-107) mmol/L Total Protein 5.9 L (6.3-8.2) g/dL Albumin 3.1 L (3.5-5.0) g/dL Microbiology - Last 24 Hours (Table) 06/02/18 14:15 Blood Culture - Preliminary Blood No Growth after 72 hours Assessment and Plan Assessment: Impression Present on admission epigastric pain radiating to the right upper quadrant likely due to markedly thickened bowel wall with surrounding mesenteric edema inflammation small intestine Computed tomography scan abdomen pelvis show evidence of diverticulosis no diverticulitis Ultrasound of the gallbladder show multiple polyps with common bile duct normal History of colonoscopy 2017 moderate left-sided diverticulosis, 1.5 cm rectal polyp status post polypectomy Present on admission leukocytosis suspect reactive CAT scan of the abdomen and pelvis obtained on the may report reviewed acute thrombus of the SMV with persistent severe vocal and neuritis involving ileal loop in the right lower quadrant History of a clotting disorder factor. 2 and 5 on no anticoagulation at home CAT scan abdomen and pelvis report's appearing mesentery vein thrombosis Plan Pain control IV Zosyn as ordered DVT and GI prophylaxis Further surgical recommendations pending IV fluid hydration Pain control Continue the workup per oncology defer to Continue recommendations by cardiology service Progress note being dictated for Dr. Santiago rounding on behalf of dr segal The above impression and plan of care have been discussed and directed by signing physician. Lona John nurse practitioner acting as scribe for signing physician. <Rohan Santiago - Last Filed: 06/06/18 18:01> Objective - Vital Signs Vital signs: Vital Signs Temp 98.0 F 06/06/18 14:52 Pulse 62 06/06/18 14:52 Resp 18 06/06/18 14:52 BP 142/84 06/06/18 14:52 Pulse Ox 96 06/06/18 14:52 Intake & Output 06/05/18 06/06/18 06/06/18 18:59 06:59 18:59 Intake Total 095.413 0127.415 Output Total 600 Balance -632.356 9731.415 Weight 86.636 kg Intake: Intake, IV Titration 851.429 3876.415 Amount Heparin Sod,Pork in 0.45% 141.635 361.415 NaCl 25,000 unit In 0.45 % NaCl 1 500ml.bag @ 11.6 UNITS/KG/HR 20.09 mls/hr IV .Q24H [facility] Rx#: [id number] Sodium Chloride 0.9% 1, 900 000 ml @ 100 mls/hr IV . Q10H [facility] Rx#:[id number] Oral 300 Output: Urine 600 Other: Voiding Method Toilet Toilet # Voids 2 2 - Labs CBC & Chem 7: 06/06/18 05:18 06/06/18 05:18 Labs: Abnormal Lab Results - Last 24 Hours (Table) 06/05/18 06/06/18 06/06/18 Range/Units 22:47 05:18 05:18 RBC 4.18 L (4.30-5.90) m/uL Hgb 12.4 L (13.0-17.5) gm/dL Hct 37.4 L (39.0-53.0) % APTT 34.0 H (22.0-30.0) sec Chloride 108 H (98-107) mmol/L Total Protein 5.9 L (6.3-8.2) g/dL Albumin 3.1 L (3.5-5.0) g/dL 06/06/18 06/06/18 Range/Units : 13:52 RBC (4.30-5.90) m/uL Hgb (13.0-17.5) gm/dL Hct (39.0-53.0) % APTT 39.3 H 57.6 H (22.0-30.0) sec Chloride (98-107) mmol/L Total Protein (6.3-8.2) g/dL Albumin (3.5-5.0) g/dL Microbiology - Last 24 Hours (Table) 06/02/18 14:15 Blood Culture - Preliminary Blood No Growth after 72 hours Assessment and Plan Assessment: As above. Patient states he is doing much better today. Yesterday he was having abdominal discomfort with eating however today the patient's pain has been absent. He did have an ultrasound which did not show any definite abnormalities. CAT scan chest negative for PE. Patient being maintained on IV anticoagulation. Abdomen remained soft and minimally tender in the lower abdomen. Recommend conversion of IV to oral anticoagulation. Anticipate discharge Saturday. Advance diet.
--- NOTE | 2018-06-06 11:17 | P.PN ---
<Zuly Gupta - Last Filed: 06/06/18 16:14> Subjective Progress Note Date: 06/06/18 Principal diagnosis: Mesenteric Venous Thrombosis Patient CTA neg and LE Doppler. Objective - Vital Signs Vital signs: Vital Signs Temp 98.5 F 06/06/18 07:00 Pulse 61 06/06/18 07:00 Resp 18 06/06/18 07:00 BP 147/84 06/06/18 07:00 Pulse Ox 97 06/06/18 07:00 Intake & Output 06/05/18 06/06/18 06/06/18 18:59 06:59 18:59 Intake Total 186.385 5125.415 Output Total 600 Balance -479.454 9208.415 Weight 86.636 kg Intake: Intake, IV Titration 146.885 1495.415 Amount Heparin Sod,Pork in 0.45% 141.635 361.415 NaCl 25,000 unit In 0.45 % NaCl 1 500ml.bag @ 11.6 UNITS/KG/HR 20.09 mls/hr IV .Q24H [facility] Rx#: [id number] Sodium Chloride 0.9% 1, 900 000 ml @ 100 mls/hr IV . Q10H [facility] Rx#:[id number] Oral 300 Output: Urine 600 Other: Voiding Method Toilet Toilet # Voids 2 - Exam Constitutional General appearance: average body habitus, cooperative, no acute distress - EENT Eyes: anicteric sclerae, EOMI, normal appearance ENT: hearing grossly normal, normal oropharynx - Neck Neck: no lymphadenopathy - Respiratory Respiratory: bilateral: CTA - Cardiovascular Rhythm: irregularly irregular Heart sounds: normal: S1, S2 Abnormal Heart Sounds: no systolic murmur, no diastolic murmur, no rub, no S3 Gallop, no S4 Gallop, no click, no other leg Peripheral Edema: bilateral: None - Gastrointestinal General gastrointestinal: normal bowel sounds, soft, tenderness (very mild epigastric) - Genitourinary no inguinal adenopathy - Integumentary Integumentary: normal - Neurologic Neurologic: CNII-XII intact - Musculoskeletal Musculoskeletal: strength equal bilaterally - Psychiatric Psychiatric: A&O x's 3, appropriate affect, intact judgment & insight - Labs CBC & Chem 7: 06/06/18 05:18 06/06/18 05:18 Labs: Abnormal Lab Results - Last 24 Hours (Table) 06/05/18 06/05/18 06/06/18 Range/Units 09:38 22:47 05:18 RBC 4.18 L (4.30-5.90) m/uL Hgb 12.4 L (13.0-17.5) gm/dL Hct 37.4 L (39.0-53.0) % INR 1.2 H (<1.2) APTT 34.0 H (22.0-30.0) sec Chloride (98-107) mmol/L Total Protein (6.3-8.2) g/dL Albumin (3.5-5.0) g/dL 06/06/18 06/06/18 Range/Units 05:18 05:18 RBC (4.30-5.90) m/uL Hgb (13.0-17.5) gm/dL Hct (39.0-53.0) % INR (<1.2) APTT 39.3 H (22.0-30.0) sec Chloride 108 H (98-107) mmol/L Total Protein 5.9 L (6.3-8.2) g/dL Albumin 3.1 L (3.5-5.0) g/dL Microbiology - Last 24 Hours (Table) 06/02/18 14:15 Blood Culture - Preliminary Blood No Growth after 72 hours Assessment and Plan (1) Atrial fibrillation with RVR Current Visit: Yes Status: Acute Code(s): I48.91 - UNSPECIFIED ATRIAL FIBRILLATION SNOMED Code(s): 061097615378560 (2) Abdominal pain Current Visit: Yes Status: Acute Code(s): R10.9 - UNSPECIFIED ABDOMINAL PAIN SNOMED Code(s): 27602899 (3) Superior mesenteric vein thrombosis Current Visit: Yes Status: Acute Priority: High Code(s): I81 - PORTAL VEIN THROMBOSIS SNOMED Code(s): 455815779 Plan: CT scan - abdomen: report reviewed CT scan - pelvis: report reviewed LE Doppler reviewed and negative for Acute DVT Abdominal Ultrasound with Doppler states unable to reveal IMV sand SMV to assess for thrombus or patency. 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 David regarding these - Await CT with Contrast of Chest to assess for Pulmonary Embolism. - Continue on Heparin Drip at this time. General Surgery following, will ensure no surgical intervention prior to converting to PO Current Visit: Yes Status: Acute Priority: High Code(s): I81 - PORTAL VEIN THROMBOSIS SNOMED Code(s): 260128531 Plan: Will convert to Eliquis as soon as ok from surgery. Will see Dr. Moise in 5-6 weeks Zuly Gupta NP <Karthik David - Last Filed: 06/08/18 17:36> Objective - Vital Signs Vital signs: Vital Signs Temp 97.8 F 06/08/18 15:00 Pulse 62 06/08/18 15:00 Resp 18 06/08/18 15:00 BP 152/88 06/08/18 15:00 Pulse Ox 99 06/08/18 15:00 Intake & Output 06/07/18 06/08/18 06/08/18 18:59 06:59 18:59 Intake Total 900 550 400 Balance 900 550 400 Intake: Intake, IV Titration 900 550 400 Amount Piperacillin-Tazobactam 3 100 200 .375 gm In Sodium Chloride 0.9% 100 ml @ 25 mls/hr IVPB Q8HR [facility] Rx# :[id number] Sodium Chloride 0.9% 1, 800 350 400 000 ml @ 100 mls/hr IV . Q10H [facility] Rx#:[id number] Other: Voiding Method Toilet # Voids 2 3 - Labs CBC & Chem 7: 06/08/18 06:07 06/08/18 06:07 Labs: Abnormal Lab Results - Last 24 Hours (Table) 06/08/18 06/08/18 Range/Units 06:07 06:07 Lymphocytes # 0.9 L (1.0-4.8) k/uL Chloride 108 H (98-107) mmol/L Microbiology - Last 24 Hours (Table) 06/02/18 14:15 Blood Culture - Preliminary Blood No Growth after 120 hours Assessment and Plan Plan: Pt examined Extensive d/w pt re diagnosis. D/w surgery. Does not appear to be any infection or inflammation that could have secondarily led to DVT. Thus the clot, causing ischemic changes and pain is felt to be the primary event. - As this is an unprovoked , major VTE, with potential for significant end organ damage, recs are for lifelong anticoagulation, assuming pt tolerates treatment well - Rec f/u scans or doppler in 3-6 mths for a new baseline - Pt's symptoms have markedly improved, and P/A exam is benign. Thus per surgery there appears to be no significant risk of impending surgical intervention. Therefore OK to change to Eliquis, and D/C heparin
--- NOTE | 2018-06-06 11:53 | P.PN ---
Subjective This is a pleasant 63-year-old male past medical history significant for hypertension, sleep apnea and GERD. He denies history of coronary artery disease or cardiac arrhythmia. 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 We have been asked to see him in consultation for atrial fibrillation. He initially presented to the hospital 06/02 with abdominal pain and was diagnosed with a thrombus of the SMV. He was found to be in atrial fibrillation with controlled ventricular response. Last night he converted back to sinus mechanism. His rhythm on auscultation sounds irregular however telemetry indicates frequent PAC's. He denies chest pain, palpitations, dizziness of shortness of breath. Blood pressure 147/84 heart rate 61. Laboratory data reviewed, hgb 12.4, plt 240, sodium 139, potassium 4.1, creatinine 0.92, TSH 1.86, magnesium 2.3. He continues on heparin infusion. He has also been seen in consultation by hematology and they are also recommending lifelong anticoagulation. Eliquis should be started as soon as possible. HEENT: Head is atraumatic, normocephalic. Pupils are equal, round. Sclerae anicteric. Conjunctivae are clear. Mucous membranes of the mouth are moist. Neck is supple. There is no jugular venous distention. No carotid bruit is heard. LUNGS: Clear to auscultation no wheezes, rales or rhonchi. No chest wall tenderness is noted on palpation or with deep breathing. HEART: Irregular rate and rhythm without murmurs, rubs or gallops. S1 and S2 heard. EXTREMITIES: No evidence of peripheral edema and no calf tenderness noted. ASSESSMENT New-onset paroxysmal atrial fibrillation with controlled ventricular response, converted to sinus mechanism Acute thrombus of the SMV Hypokalemia, currently being replaced. 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 Dr. David is recommending ongoing heparin infusion at this time pending further studies. Eliquis should be started once appropriate per surgical services for thromboembolic protection. Continue beta blockers as previously ordered. Follow up with Dr. Wlal in 2 weeks. We will continue to follow as needed, please fee free to call with questions or concerns. Nurse Practitioner note has been reviewed, I agree with a documented findings and plan of care. Patient was seen and examined. Objective - Vital Signs Vital signs: Vital Signs Temp 98.5 F 06/06/18 07:00 Pulse 61 06/06/18 07:00 Resp 18 06/06/18 07:00 BP 147/84 06/06/18 07:00 Pulse Ox 97 06/06/18 07:00 Intake & Output 06/05/18 06/06/18 06/06/18 18:59 06:59 18:59 Intake Total 625.954 8796.415 Output Total 600 Balance -360.356 5693.415 Weight 86.636 kg Intake: Intake, IV Titration 743.590 5908.415 Amount Heparin Sod,Pork in 0.45% 141.635 361.415 NaCl 25,000 unit In 0.45 % NaCl 1 500ml.bag @ 11.6 UNITS/KG/HR 20.09 mls/hr IV .Q24H [facility] Rx#: [id number] Sodium Chloride 0.9% 1, 900 000 ml @ 100 mls/hr IV . Q10H [facility] Rx#:[id number] Oral 300 Output: Urine 600 Other: Voiding Method Toilet Toilet # Voids 2 - Labs CBC & Chem 7: 06/06/18 05:18 06/06/18 05:18 Labs: Abnormal Lab Results - Last 24 Hours (Table) 06/05/18 06/06/18 06/06/18 Range/Units 22:47 05:18 05:18 RBC 4.18 L (4.30-5.90) m/uL Hgb 12.4 L (13.0-17.5) gm/dL Hct 37.4 L (39.0-53.0) % APTT 34.0 H (22.0-30.0) sec Chloride 108 H (98-107) mmol/L Total Protein 5.9 L (6.3-8.2) g/dL Albumin 3.1 L (3.5-5.0) g/dL 06/06/18 Range/Units 05:18 RBC (4.30-5.90) m/uL Hgb (13.0-17.5) gm/dL Hct (39.0-53.0) % APTT 39.3 H (22.0-30.0) sec Chloride (98-107) mmol/L Total Protein (6.3-8.2) g/dL Albumin (3.5-5.0) g/dL Microbiology - Last 24 Hours (Table) 06/02/18 14:15 Blood Culture - Preliminary Blood No Growth after 72 hours
--- NOTE | 2018-06-06 12:13 | CT ---
EXAMINATION TYPE: CT angio chest DATE OF EXAM: 06/06/2018 COMPARISON: HISTORY: SMV thrombosis CT DLP: 355.9 mGycm CONTRAST: CT chest with contrast and 3D reconstruction with MIP imaging is performed with IV Contrast, patient injected with 100 mL of Isovue 370. Contrast-enhanced CT of the chest was performed through the course of the pulmonary arteries with rosalind g and mediastinal window settings submitted. 3D reconstruction with MIP imaging was also performed. PULMONARY ARTERIES: The pulmonary arteries and their major tributaries are patent. I do not see amanda dence for sizable filling defect to suggest pulmonary embolic process. LUNGS: The lungs are clear and free of infiltrate. No pulmonary nodule or mass is detected. Right ple ural effusion measuring 3 cm AP dimension. Right basilar compressive atelectasis noted. MEDIASTINUM: Thoracic aorta is of normal caliber,however, evaluation is limited given timing of the contrast bolus. If there is concern for thoracic aortic pathology consider DEE. Correlate clinicall y . The heart is not enlarged. No evidence for mediastinal mass. No mediastinal lymph nodes greater than 1cm. HILAR STRUCTURES: No evidence for mass. No hilar lymph nodes greater than 1 cm. UPPER ABDOMEN: No significant abnormality is seen. IMPRESSION: 1. No evidence for Pulmonary embolism at this time.
[2018-06-06] MEDS: APIXABAN 5 MG TAB PO SCH (21:20)
[2018-06-07] MEDS: PIPERACILLIN-TAZOBACTAM 3.375 GM in SODIUM CHLORIDE 0.9% 100 ML IVPB SCH ×4 (00:17→23:30)
[2018-06-07 07:49] LABS: Basophils % (A) 1 %; Eosinophils # (A) 0.4 k/uL (0-0.7); Eosinophils % (A) 7 %; HCT 42.7 % (39.0-53.0); HGB 14.2 gm/dL (13.0-17.5); Lymphocytes # (A) 0.7 k/uL (1.0-4.8); Lymphocytes % (A) 12 %; MCH 29.6 pg (25.0-35.0); MCHC 33.3 g/dL (31.0-37.0); MCV 88.7 fL (80.0-100.0); Mean Platelet Volume 6.4; Monocytes # (A) 0.4 k/uL (0-1.0); Monocytes % (A) 7 %; Neutrophils # (A) 4.2 k/uL (1.3-7.7); Neutrophils % (A) 71 %; Platelet Count 269 k/uL (150-450); RBC 4.82 m/uL (4.30-5.90); RDW 12.4 % (11.5-15.5); WBC 5.9 k/uL (3.8-10.6)
[2018-06-07] MEDS: PANTOPRAZOLE 40 MG TABLET PO SCH (09:24)
[2018-06-07] MEDS: APIXABAN 5 MG TAB PO SCH ×2 (09:24→20:45)
[2018-06-07] MEDS: METOPROLOL TARTRATE 50 MG TAB PO SCH ×2 (09:24→20:45)
[2018-06-07] MEDS: SODIUM CHLORIDE 0.9% 1,000 ML IV SCH ×2 (10:58→19:32)
--- NOTE | 2018-06-07 16:24 | P.PN ---
Subjective Progress Note Date: 06/07/18 CHIEF COMPLAINT: Small bowel inflammation HISTORY OF PRESENT ILLNESS: The patient is a 63-year-old gentleman admitted secondary to small bowel inflammation abdominal pain. Workup demonstrated thrombosis of his SMV. His current being worked up for thromboembolic event. His family is at bedside. Now he has developed arrhythmia of new onset atrial fibrillation. His abdominal pain is resolved. PHYSICAL EXAM: VITAL SIGNS: Currently stable. GENERAL: Well-developed in no acute distress. HEENT: No sclera icterus. Extraocular movements grossly intact. Moist buccal mucosa. Head is atraumatic, normocephalic. Hears conversational speech. No nasal drainage. NECK: Supple without lymphadenopathy. CHEST: Non-labored respirations and equal bilateral excursions. CARDIOVASCULAR: 2+ radial pulses. ABDOMEN: Soft. Nondistended. MUSCULOSKELETAL: No clubbing, cyanosis or edema. NEUROLOGIC: No focal or lateralizing signs. Cranial nerves II through XII grossly intact. PSYCH: Appropriate affect. Alert and oriented to person, place and time. SKIN: Well perfused. Good skin turgor. LABS: Reviewed ASSESSMENT: 1. SMV thrombosis with small bowel inflammation 2. Atrial fibrillation with RVR PLAN: 1. Diet as tolerated. 2. Medicine management of new onset arrhythmia Objective - Vital Signs Vital signs: Vital Signs Temp 98.6 F 06/07/18 15:00 Pulse 68 06/07/18 15:00 Resp 18 06/07/18 15:00 BP 127/79 06/07/18 15:00 Pulse Ox 98 06/07/18 15:00 Intake & Output 06/06/18 06/07/18 06/07/18 18:59 06:59 18:59 Intake Total 392.7 600 900 Balance 392.7 600 900 Weight 86.636 kg Intake: Intake, IV Titration 392.7 600 900 Amount Heparin Sod,Pork in 0.45% 392.7 NaCl 25,000 unit In 0.45 % NaCl 1 500ml.bag @ 11.6 UNITS/KG/HR 20.09 mls/hr IV .Q24H [facility] Rx#: [id number] Piperacillin-Tazobactam 3 100 .375 gm In Sodium Chloride 0.9% 100 ml @ 25 mls/hr IVPB Q8HR [facility] Rx# :[id number] Sodium Chloride 0.9% 1, 600 800 000 ml @ 100 mls/hr IV . Q10H [facility] Rx#:[id number] Other: Voiding Method Toilet # Voids 2 1 2 - Labs CBC & Chem 7: 06/07/18 07:00 06/06/18 05:18 Labs: Abnormal Lab Results - Last 24 Hours (Table) 06/07/18 Range/Units 07:00 Lymphocytes # 0.7 L (1.0-4.8) k/uL Microbiology - Last 24 Hours (Table) 06/02/18 14:15 Blood Culture - Preliminary Blood No Growth after 96 hours
--- NOTE | 2018-06-07 20:30 | P.PN ---
Subjective this is a pleasant 63 yo M with pmh of hypertension, osteoarthritis, GERD, and sleep apnea, obesty who presents with abdominal pain of 2 weeks duration , the pain is in the epigastrium, stabing in character, was getting worse with food with no associated nausea or vomiting. pt has little loose bowel movement. he presented to his pcp during which he got worse with some dizziness and he was sent to the hospital . CT of Abd/Pelvis: there is markedly thickened bowel wall in the right abd with mesenteric edema and thormbosis of SMV is suspected . EKG : showed atrial fibrillation. pt is already was started on heparin drip. cardiolgy team evaluated the pt and recomended pt to start on eliquis. pt currently abd pain is minial with some abd distension . pt ate a little bit because he feels full. 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 06/06/2018 Patient still have mild abdominal pain which is like sharp associated with bowel movement. Patient since yesterday have 5 bowel movements which were mushy. However by the time I saw the patient and his abdominal pain has resolved down to 0/10. No associated nausea vomiting. No chest pain or dyspnea. No with pain or swelling. Cardiology and oncology team are following the patient as well and they recommended to start him on oral anticoagulation. Patient need approval for his Eliquis. He still on IV fluids at 50 mL per hour. Gynecology team recommended vascular workup and form of CT angiogram of the chest and double ultrasound of the lower extremity and abdominal ultrasound. Patient will need lifelong anticoagulation and his been informed with this for which he agrees. Risk of nephrotoxicity with IV contrast are explained to the patient in detail she verbalized understanding and acceptance to do the test. Benefits more than risks 06/07/2018 Patient today abdominal pain is resolved and 0/10, no nausea vomiting and bowel movements are the same as of yesterday. He states in the last 24 hours he had 4 bowel movements which were loose. However there was no visible blood except for his occult blood in the stool came back positive. Patient's vital signs stable with no tachycardia. And his hemoglobin actually better than yesterday went up from 12.4 to 14.2 . he is on Eliquis continue with hydration. Objective - Vital Signs Vital signs: Vital Signs Temp 98.2 F 06/07/18 07:45 Pulse 99 06/07/18 09:26 Resp 18 06/07/18 07:45 BP 126/77 06/07/18 09:26 Pulse Ox 96 06/07/18 07:45 Intake & Output 06/06/18 06/07/18 06/07/18 18:59 06:59 18:59 Intake Total 392.7 600 Balance 392.7 600 Weight 86.636 kg Intake: Intake, IV Titration 392.7 600 Amount Heparin Sod,Pork in 0.45% 392.7 NaCl 25,000 unit In 0.45 % NaCl 1 500ml.bag @ 11.6 UNITS/KG/HR 20.09 mls/hr IV .Q24H [facility] Rx#: [id number] Sodium Chloride 0.9% 1, 600 000 ml @ 100 mls/hr IV . Q10H [facility] Rx#:[id number] Other: Voiding Method Toilet # Voids 2 1 - Exam Physical exam GENERAL: The patient is alert and oriented x3, not in any acute distress. Well developed, well nourished. HEENT: Pupils are round and equally reacting to light. EOMI. No scleral icterus. No conjunctival pallor. Normocephalic, atraumatic. No pharyngeal erythema. No thyromegaly. CARDIOVASCULAR: S1 and S2 present. No murmurs, rubs, or gallops. PULMONARY: Chest is clear to auscultation, no wheezing or crackles. ABDOMEN: Soft, nontender, nondistended, normoactive bowel sounds. No palpable organomegaly. MUSCULOSKELETAL: No joint swelling or deformity. EXTREMITIES: No cyanosis, clubbing, or pedal edema. NEUROLOGICAL: Gross neurological examination did not reveal any focal deficits. SKIN: No rashes. - Labs CBC & Chem 7: 06/07/18 07:00 06/06/18 05:18 Labs: Abnormal Lab Results - Last 24 Hours (Table) 06/06/18 06/07/18 Range/Units 13:52 07:00 Lymphocytes # 0.7 L (1.0-4.8) k/uL APTT 57.6 H (22.0-30.0) sec Microbiology - Last 24 Hours (Table) 06/02/18 14:15 Blood Culture - Preliminary Blood No Growth after 96 hours Assessment and Plan Assessment: acute SMV thrombosis , started on anticoagulation enteritis/colitis secondary to above new onset a. fib factor II and V deficincy Mild leukocytosis on admission, resolved Plan: this is a pleasant 63 yo M presenting with a fib and SMV thrombosis. cardiology team is been consulted. pt is already started on anti-coagulation. his heart rate is better controlled now. advance diet as tolerated . continue with the same treatment , continue with symptomatic treatment , resume home medication , monitor lytes and vitals including glucose , c/w iv fluids, cardiology consult is appreciated. infectious disease consult is appreciated . c /w same antibioitc . GI and DVT prophylaxis , further recommendation based upon pt clinical course and progress DVT prophylaxis on anticoagulation GI prophylaxis Protonix Prognosis is guarded
[2018-06-08] MEDS: SODIUM CHLORIDE 0.9% 1,000 ML IV SCH ×2 (03:23→18:11)
[2018-06-08 07:00] LABS: Basophils % (A) 0 %; Eosinophils # (A) 0.4 k/uL (0-0.7); Eosinophils % (A) 6 %; HCT 40.2 % (39.0-53.0); HGB 13.3 gm/dL (13.0-17.5); Lymphocytes # (A) 0.9 k/uL (1.0-4.8); Lymphocytes % (A) 13 %; MCH 29.3 pg (25.0-35.0); MCV 88.7 fL (80.0-100.0); Mean Platelet Volume 6.6; Monocytes # (A) 0.5 k/uL (0-1.0); Monocytes % (A) 7 %; Neutrophils # (A) 4.8 k/uL (1.3-7.7); Neutrophils % (A) 72 %; Platelet Count 284 k/uL (150-450); RBC 4.53 m/uL (4.30-5.90); RDW 12.6 % (11.5-15.5); WBC 6.7 k/uL (3.8-10.6)
[2018-06-08 07:15] LABS: Anion Gap 8 mmol/L; Blood Urea Nitrogen 13 mg/dL (9-20); Calcium 8.6 mg/dL (8.4-10.2); Carbon Dioxide 24 mmol/L (22-30); Chloride 108 mmol/L (98-107); Glucose 95 mg/dL (74-99); Potassium 3.9 mmol/L (3.5-5.1); Sodium 140 mmol/L (137-145)
[2018-06-08] MEDS: PANTOPRAZOLE 40 MG TABLET PO SCH (07:48)
[2018-06-08] MEDS: METOPROLOL TARTRATE 50 MG TAB PO SCH ×2 (07:48→20:53)
[2018-06-08] MEDS: APIXABAN 5 MG TAB PO SCH ×2 (07:48→20:53)
--- NOTE | 2018-06-08 10:57 | P.PN ---
Subjective Progress Note Date: 06/08/18 CHIEF COMPLAINT: Small bowel inflammation HISTORY OF PRESENT ILLNESS: The patient is a 63-year-old gentleman admitted secondary to small bowel inflammation abdominal pain. Workup demonstrated thrombosis of his SMV. He is tolerating diet. He feels great. He is being managed for atrial fibrillation. PHYSICAL EXAM: VITAL SIGNS: Currently stable. GENERAL: Well-developed in no acute distress. HEENT: No sclera icterus. Extraocular movements grossly intact. Moist buccal mucosa. Head is atraumatic, normocephalic. Hears conversational speech. No nasal drainage. NECK: Supple without lymphadenopathy. CHEST: Non-labored respirations and equal bilateral excursions. CARDIOVASCULAR: 2+ radial pulses. ABDOMEN: Soft. Nondistended. MUSCULOSKELETAL: No clubbing, cyanosis or edema. NEUROLOGIC: No focal or lateralizing signs. Cranial nerves II through XII grossly intact. PSYCH: Appropriate affect. Alert and oriented to person, place and time. SKIN: Well perfused. Good skin turgor. LABS: Reviewed ASSESSMENT: 1. SMV thrombosis with small bowel inflammation 2. Atrial fibrillation with RVR PLAN: 1. Diet as tolerated. 2. Patient cleared from a surgical standpoint for discharge once medically stable Objective - Vital Signs Vital signs: Vital Signs Temp 97.6 F 06/08/18 07:35 Pulse 79 06/08/18 07:35 Resp 18 06/08/18 07:35 BP 138/94 06/08/18 07:35 Pulse Ox 96 06/08/18 07:35 Intake & Output 06/07/18 06/08/18 06/08/18 18:59 06:59 18:59 Intake Total 900 550 Balance 900 550 Intake: Intake, IV Titration 900 550 Amount Piperacillin-Tazobactam 3 100 200 .375 gm In Sodium Chloride 0.9% 100 ml @ 25 mls/hr IVPB Q8HR [facility] Rx# :[id number] Sodium Chloride 0.9% 1, 800 350 000 ml @ 100 mls/hr IV . Q10H [facility] Rx#:[id number] Other: Voiding Method Toilet # Voids 2 3 - Labs CBC & Chem 7: 06/08/18 06:07 06/08/18 06:07 Labs: Abnormal Lab Results - Last 24 Hours (Table) 06/08/18 06/08/18 Range/Units 06:07 06:07 Lymphocytes # 0.9 L (1.0-4.8) k/uL Chloride 108 H (98-107) mmol/L Microbiology - Last 24 Hours (Table) 06/02/18 14:15 Blood Culture - Preliminary Blood No Growth after 120 hours
--- NOTE | 2018-06-08 11:48 | P.PN ---
Subjective this is a pleasant 63 yo M with pmh of hypertension, osteoarthritis, GERD, and sleep apnea, obesty who presents with abdominal pain of 2 weeks duration , the pain is in the epigastrium, stabing in character, was getting worse with food with no associated nausea or vomiting. pt has little loose bowel movement. he presented to his pcp during which he got worse with some dizziness and he was sent to the hospital . CT of Abd/Pelvis: there is markedly thickened bowel wall in the right abd with mesenteric edema and thormbosis of SMV is suspected . EKG : showed atrial fibrillation. pt is already was started on heparin drip. cardiolgy team evaluated the pt and recomended pt to start on eliquis. pt currently abd pain is minial with some abd distension . pt ate a little bit because he feels full. 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 06/06/2018 Patient still have mild abdominal pain which is like sharp associated with bowel movement. Patient since yesterday have 5 bowel movements which were mushy. However by the time I saw the patient and his abdominal pain has resolved down to 0/10. No associated nausea vomiting. No chest pain or dyspnea. No with pain or swelling. Cardiology and oncology team are following the patient as well and they recommended to start him on oral anticoagulation. Patient need approval for his Eliquis. He still on IV fluids at 50 mL per hour. Gynecology team recommended vascular workup and form of CT angiogram of the chest and double ultrasound of the lower extremity and abdominal ultrasound. Patient will need lifelong anticoagulation and his been informed with this for which he agrees. Risk of nephrotoxicity with IV contrast are explained to the patient in detail she verbalized understanding and acceptance to do the test. Benefits more than risks 06/07/2018 Patient today abdominal pain is resolved and 0/10, no nausea vomiting and bowel movements are the same as of yesterday. He states in the last 24 hours he had 4 bowel movements which were loose. However there was no visible blood except for his occult blood in the stool came back positive. Patient's vital signs stable with no tachycardia. And his hemoglobin actually better than yesterday went up from 12.4 to 14.2 . he is on Eliquis continue with hydration. 06/08/2018 Patient abdominal pain continued to improve. Patient bowel movement today states his going to be more formed with no fresh blood in it. Vitals stable with blood pressure 138/94 and heart rate 79. Oxygen saturation 96% on room air. His hemoglobin is stable at 13.3. Rest of CBC and BMP were unremarkable. Venous Doppler study was negative for both lower extremity for DVT. As well as CTPA was negative for PE. Patient continues to be on Eliquis 10 mg started 2 -3 days ago, and so far his tolerated that well. FOBT positive. Hematology/ oncology team are following the patient. Objective - Vital Signs Vital signs: Vital Signs Temp 97.6 F 06/08/18 07:35 Pulse 79 06/08/18 07:35 Resp 18 06/08/18 07:35 BP 138/94 06/08/18 07:35 Pulse Ox 96 06/08/18 07:35 Intake & Output 06/07/18 06/08/18 06/08/18 18:59 06:59 18:59 Intake Total 900 550 Balance 900 550 Intake: Intake, IV Titration 900 550 Amount Piperacillin-Tazobactam 3 100 200 .375 gm In Sodium Chloride 0.9% 100 ml @ 25 mls/hr IVPB Q8HR [facility] Rx# :[id number] Sodium Chloride 0.9% 1, 800 350 000 ml @ 100 mls/hr IV . Q10H [facility] Rx#:[id number] Other: Voiding Method Toilet # Voids 2 3 - Exam Physical exam GENERAL: The patient is alert and oriented x3, not in any acute distress. Well developed, well nourished. HEENT: Pupils are round and equally reacting to light. EOMI. No scleral icterus. No conjunctival pallor. Normocephalic, atraumatic. No pharyngeal erythema. No thyromegaly. CARDIOVASCULAR: S1 and S2 present. No murmurs, rubs, or gallops. PULMONARY: Chest is clear to auscultation, no wheezing or crackles. ABDOMEN: Soft, nontender, nondistended, normoactive bowel sounds. No palpable organomegaly. MUSCULOSKELETAL: No joint swelling or deformity. EXTREMITIES: No cyanosis, clubbing, or pedal edema. NEUROLOGICAL: Gross neurological examination did not reveal any focal deficits. SKIN: No rashes. - Labs CBC & Chem 7: 06/08/18 06:07 06/08/18 06:07 Labs: Abnormal Lab Results - Last 24 Hours (Table) 06/08/18 06/08/18 Range/Units 06:07 06:07 Lymphocytes # 0.9 L (1.0-4.8) k/uL Chloride 108 H (98-107) mmol/L Microbiology - Last 24 Hours (Table) 06/02/18 14:15 Blood Culture - Preliminary Blood No Growth after 120 hours Assessment and Plan Assessment: acute SMV thrombosis , started on anticoagulation enteritis/colitis secondary to above new onset a. fib, started on Eliquis factor II and V deficincy Mild leukocytosis on admission, resolved Plan: this is a pleasant 63 yo M presenting with a fib and SMV thrombosis. cardiology team is been consulted. pt is already started on anti-coagulation. his heart rate is better controlled now. advance diet as tolerated . continue with the same treatment , continue with symptomatic treatment , resume home medication , monitor lytes and vitals including glucose , c/w iv fluids, cardiology consult is appreciated. infectious disease consult is appreciated . c /w same antibioitc . GI and DVT prophylaxis , further recommendation based upon pt clinical course and progress DVT prophylaxis on anticoagulation GI prophylaxis Protonix Prognosis is guarded
[2018-06-08] MEDS: PIPERACILLIN-TAZOBACTAM 3.375 GM in SODIUM CHLORIDE 0.9% 100 ML IVPB SCH ×2 (12:59→18:12)
[2018-06-09] MEDS: SODIUM CHLORIDE 0.9% 1,000 ML IV SCH ×2 (00:09→08:52)
[2018-06-09] MEDS: PIPERACILLIN-TAZOBACTAM 3.375 GM in SODIUM CHLORIDE 0.9% 100 ML IVPB SCH ×2 (00:16→07:43)
[2018-06-09] MEDS: METOPROLOL TARTRATE 50 MG TAB PO SCH ×3 (07:44→08:57)
[2018-06-09] MEDS: PANTOPRAZOLE 40 MG TABLET PO SCH (07:44)
[2018-06-09] MEDS: APIXABAN 5 MG TAB PO SCH (07:44)
[2018-06-09 07:52] VITALS: BP 142/88; PULSE 75; RESP 16; TEMP 98
[2018-06-09 08:33] LABS: Basophils % (A) 1 %; Eosinophils # (A) 0.4 k/uL (0-0.7); Eosinophils % (A) 5 %; HCT 43.5 % (39.0-53.0); HGB 14.7 gm/dL (13.0-17.5); Lymphocytes # (A) 0.8 k/uL (1.0-4.8); Lymphocytes % (A) 10 %; MCH 30.4 pg (25.0-35.0); MCHC 33.9 g/dL (31.0-37.0); MCV 89.5 fL (80.0-100.0); Mean Platelet Volume 6.4; Monocytes # (A) 0.4 k/uL (0-1.0); Monocytes % (A) 5 %; Neutrophils # (A) 6.2 k/uL (1.3-7.7); Neutrophils % (A) 78 %; Platelet Count 290 k/uL (150-450); RBC 4.85 m/uL (4.30-5.90); RDW 12.8 % (11.5-15.5)
== END 2018-06-09 15:10 | disposition home or self-care (01) | DRG 442 ==
LOC: EC 13:53 → 4MS4W 16:27 → 4SSUR 06-05 13:16
PROVIDERS: ADMIT Internal Medicine; ATTEND Internal Medicine
DX: I81 Portal vein thrombosis (principal); D68.2 Hereditary deficiency of other clotting factors; E87.6 Hypokalemia; G47.33 Obstructive sleep apnea (adult) (pediatric); I10 Essential (primary) hypertension; I48.0 Paroxysmal atrial fibrillation; I70.213 Atherosclerosis of native arteries of extremities with intermittent claudication, bilateral legs; K21.9 Gastro-esophageal reflux disease without esophagitis; K52.9 Noninfective gastroenteritis and colitis, unspecified; K57.30 Diverticulosis of large intestine without perforation or abscess without bleeding; Z87.19 Personal history of other diseases of the digestive system; Z79.01 Long term (current) use of anticoagulants; Z79.1 Long term (current) use of non-steroidal anti-inflammatories (NSAID); Z79.899 Other long term (current) drug therapy; K82.4 Cholesterolosis of gallbladder; Z87.891 Personal history of nicotine dependence; M19.90 Unspecified osteoarthritis, unspecified site; D72.829 Elevated white blood cell count, unspecified
CPT/HCPCS: 36415; 71275; 74177; 76700; 80048; 80053; 81001; 82150; 82272; 83605; 83690; 83735; 84443; 84484; 85025; 85610; 85730; 87040; 93005; 93306; 93970; 96361; 96365; 96375; 99285

== ENCOUNTER → 2018-06-02 | Outpatient (CLI) | payer BC ==
--- NOTE | 2018-06-02 13:53 | US ---
EXAMINATION TYPE: US abdomen complete DATE OF EXAM: 06/02/2018 COMPARISON: NONE CLINICAL HISTORY: R10.10 Upper ABD Pain, R10.13 Epigastric Pain. Pt states ABD/Epigastric pain x 2 we eks EXAM MEASUREMENTS: Liver Length: 15.5 cm Gallbladder Wall: 0.2 cm CBD: 0.3 cm Spleen: 9.2 cm Right Kidney: 10.6 x 5.9 x 5.8 cm Left Kidney: 10.1 x 5.5 x 6.0 cm Pancreas: Obscured by bowel gas Liver: Cyst right lobe= 1.0 x 1.1 x 1.0 cm Gallbladder: Multiple polyps within lumen Evidence for sonographic Dozier's sign: No CBD: wnl Spleen: wnl Right Kidney: wnl Left Kidney: Cyst lateral= 0.9 x 0.9 x 1.0 cm, abnormal appearance to lower pole ?malrotation Upper IVC: wnl Abd Aorta: Difficult to visualize due to overlying bowel gas Attempted to call Dr's office, no answer The liver is homogenous. The intrahepatic portion of the IVC and proximal abdominal aorta are within normal limits. There is no evidence of cholelithiasis. Common bile duct is unremarkable. The visu alized portions of the pancreas are homogenous. The spleen is unremarkable. Kidneys are symmetric a nd free of hydronephrosis. No renal lesions are seen. IMPRESSION: 1. gallbladder polyps. 2. Simple appearing hepatic cyst. 3. Simple appearing left renal cyst.
== END | disposition home or self-care (01) ==
LOC: RADUSWWP 12:04
PROVIDERS: ATTEND Family Medicine
DX: N28.1 Cyst of kidney, acquired (principal); K82.4 Cholesterolosis of gallbladder; K76.89 Other specified diseases of liver
CPT/HCPCS: 76700

== ENCOUNTER → 2018-06-10 | Outpatient (CLI) | payer BC ==
--- NOTE | 2018-06-10 16:46 | XR ---
Left knee HISTORY: Left knee pain and swelling with limited range of motion 2 views of the left knee No comparisons There is remodeling with joint space loss, subchondral geode formation and sclerosis, marginal spurri ng especially at the medial compartment. Bone mineralization is otherwise maintained. Question a varu s deformity. Suprapatellar joint effusion is suspected. Spurring also present at the patellofemoral j oint. Question chondrocalcinosis. IMPRESSION: Consider crystal deposition arthropathy, osteoarthritis.
== END | disposition home or self-care (01) ==
LOC: RADXRYALE 11:06
PROVIDERS: ATTEND Internal Medicine
DX: M25.562 Pain in left knee (principal)